=== PATIENT | male | born 1940 | race Caucasian/White ===

== ENCOUNTER 2020-04-29 07:51 | Inpatient (IN) | payer MEDICARE, BC ==
[~2020-04-29] VITALS: Ht 175.3 cm; Wt 83.3 kg
[2020-04-29] MEDS ORDERED: nitroGLYCERIN 0.4mg SUBLingual tab SL PRN ×2 (08:05→08:20)
[2020-04-29] MEDS ORDERED: nitroGLYCERIN 0.4mg SUBLingual tab SL ONE (08:07)
--- NOTE | 2020-04-29 08:19 | NUR ---
denies chest pain at this time.
[2020-04-29 08:31] LABS: BASOPHILS # (AUTO) 0.1 X10'3 (0-0.2); BASOPHILS % (AUTO) 0.8 % (0-1); EOSINOPHILS # (AUTO) 0.5 X10'3 (0-0.9); EOSINOPHILS % (AUTO) 6.7 % (0-6); HEMATOCRIT 43.2 % (42.0-52.0); HEMOGLOBIN 14.6 g/dl (14.0-17.9); LYMPHOCYTES # (AUTO) 1.7 X10'3 (1.1-4.8); LYMPHOCYTES % (AUTO) 21.2 % (21-51); MEAN CORPUSCULAR HEMOGLOBIN 31.6 PG (27.0-31.0); MEAN CORPUSCULAR HGB CONC 33.8 g/dL (33.0-36.5); MEAN CORPUSCULAR VOLUME 93.3 FL (78-98); MEAN PLATELET VOLUME 8.2 FL (7.4-10.4); MONOCYTES # (AUTO) 1.1 X10'3 (0-0.9); MONOCYTES % (AUTO) 14.5 % (2-12); NEUTROPHILS # (AUTO) 4.5 X10'3 (1.8-7.7); NEUTROPHILS % (AUTO) 56.8 % (42-75); PLATELET COUNT 188 X10'3 (140-440); RED BLOOD COUNT 4.63 X10'6 (4.70-6.10); WHITE BLOOD COUNT 7.8 X10'3 (4.5-11.0)
[2020-04-29 08:45] LABS: ALANINE AMINOTRANSFERASE 24 U/L (12-78); ALBUMIN 3.7 G/DL (3.4-5.0); ALKALINE PHOSPHATASE 69 IU/L (46-116); ANION GAP 8 (8-16); ASPARTATE AMINO TRANSFERASE 26 U/L (10-37); BILIRUBIN,TOTAL 0.5 MG/DL (0.1-1.0); BLOOD UREA NITROGEN 21 MG/DL (7-18); BUN/CREATININE RATIO 15.7 (5.4-32.0); CALCIUM 9.1 MG/DL (8.5-10.1); CHLORIDE 104 MMOL/L (99-107); CREATININE 1.34 MG/DL (0.60-1.10); GLUCOSE 132 MG/DL (70-104); POTASSIUM 4.3 MMOL/L (3.5-5.1); SODIUM 136 MMOL/L (135-145); TOTAL CARBON DIOXIDE 24.3 MMOL/L (24-32); TOTAL PROTEIN 7.5 G/DL (6.4-8.2); eGFR 51 ML/MIN
[2020-04-29] MEDS ORDERED: aspirin 81mg tab.chew PO ONE (09:50)
[2020-04-29] MEDS ORDERED: LISI-600 PO (09:50)
[2020-04-29] MEDS ORDERED: heparin 10,000 units/1 ML INJ IV ONE ×2 (09:50→10:00)
[2020-04-29] MEDS ORDERED: magnesium hydroxide 30ml (MOM) UD suspension PO PRN (10:05)
[2020-04-29] MEDS ORDERED: morphine 2 MG/ML inj. syringe IV PRN ×2 (10:05)
[2020-04-29] MEDS ORDERED: acetaminophen 325mg tablet PO PRN (10:05)
[2020-04-29] MEDS ORDERED: ondansetron/PF 4mg/2ml inj IV PRN (10:05)
[2020-04-29] MEDS ORDERED: nitroGLYCERIN 1gm ointment UD TP ONE (10:05)
[2020-04-29] MEDS ORDERED: mag hydrox/Alum hydrox/simeth 30ml oral suspension PO PRN (10:05)
[2020-04-29] MEDS: heparin 25,000 UNIT/250ml bag 250 ML IV SCH ×2 (10:06→17:32)
[2020-04-29] MEDS: normal saline 1000ml 1,000 ML IV SCH ×3 (10:16→21:45)
[2020-04-29] MEDS ORDERED: METO25TA6 PO (10:20)
--- NOTE | 2020-04-29 12:29 | NUR ---
PT DENIES ANY CHEST PAIN, VS UPDATED AND PT PROVIDED WITH A URINAL
--- NOTE | 2020-04-29 13:22 | NUR ---
Spoke to Helen/elroyRN unable to take report since in covid room.Will attempt again in 10 minutes.ED CN aware.
--- NOTE | 2020-04-29 13:38 | NUR ---
Received report from STANISLAV Ibanez from ED. Awaiting patient's arrival to room 3012B.
[2020-04-29 13:47] VITALS: BP 187/74
--- NOTE | 2020-04-29 13:47 | NUR ---
Patient brought up by anel from ED. Patient ambulated from [facility] to bed and on heparin gtt running at 10. Patient vital signs are 95% on room air, temp 98.2, HR 68, BP 187/74, RR 16, and pain 1/10 which is a dull ache in over his sternal chest. Bed locked and lowered, call light in reach, nonskid socks on and in no acute distress. Will continue to monitor.
[2020-04-29 15:00] VITALS: BP 180/100
--- NOTE | 2020-04-29 16:03 | NUR ---
Paged Dr. Estevez regarding critical troponin of 0.66 PAGER ID: [phone] MESSAGE: [phone]. Luis Eduardo Dickson. Critical results of troponin of 0.66. Thank you. Marti COLORADO x [phone]
[2020-04-29] MEDS ORDERED: pneumococcal 23-VAL P-sac vacc 25 mcg/0.5ml vial IMVAC ONE (16:15)
[2020-04-29] MEDS: heparin 10,000 units/1 ML INJ IV PRN (17:31)
[2020-04-29 19:00] VITALS: BP 180/82
--- NOTE | 2020-04-29 20:00 | NUR ---
Page sent to Dr. Garcia regarding critically elevated 12 hour troponin of 0.76 which is elevated from 0.66. Patient is awaiting cardiac consult. MD aware of value and stated to continue to monitor
[2020-04-29] MEDS: metoprolol tartrate 25mg tablet PO SCH (20:23)
[2020-04-29 23:00] VITALS: BP 135/64
[2020-04-30] MEDS: heparin 25,000 UNIT/250ml bag 250 ML IV SCH ×4 (01:41→23:52)
[2020-04-30 01:44] VITALS: BP 148/78
[2020-04-30 06:00] VITALS: BP 153/83
--- NOTE | 2020-04-30 06:16 | NUR ---
Problems reprioritized. Patient report given, questions answered & plan of care reviewed with Sindy COLORADO.
--- NOTE | 2020-04-30 06:51 | NUR ---
Patient in room PCU 3012. I have received report from Elise COLORADO and had the opportunity to ask questions and assume patient care.
[2020-04-30] MEDS ORDERED: atorvastatin 20mg tablet PO SCH (08:00)
[2020-04-30 08:17] LABS: BASOPHILS # (AUTO) 0.1 X10'3 (0-0.2); EOSINOPHILS # (AUTO) 0.6 X10'3 (0-0.9); EOSINOPHILS % (AUTO) 8.1 % (0-6); LYMPHOCYTES # (AUTO) 1.3 X10'3 (1.1-4.8); LYMPHOCYTES % (AUTO) 19.8 % (21-51); MEAN CORPUSCULAR HEMOGLOBIN 31.6 PG (27.0-31.0); MEAN CORPUSCULAR HGB CONC 34.1 g/dL (33.0-36.5); MEAN CORPUSCULAR VOLUME 92.7 FL (78-98); MEAN PLATELET VOLUME 8.5 FL (7.4-10.4); MONOCYTES # (AUTO) 0.9 X10'3 (0-0.9); MONOCYTES % (AUTO) 12.7 % (2-12); NEUTROPHILS % (AUTO) 58.4 % (42-75); PLATELET COUNT 176 X10'3 (140-440); RED BLOOD COUNT 4.42 X10'6 (4.70-6.10); RED CELL DISTRIBUTION WIDTH 14.1 % (11.5-14.5); WHITE BLOOD COUNT 6.8 X10'3 (4.5-11.0)
[2020-04-30] MEDS: aspirin 81mg tablet.DR PO SCH (08:17)
[2020-04-30] MEDS: metoprolol tartrate 25mg tablet PO SCH ×2 (08:18→20:11)
[2020-04-30] MEDS: lisinopril 20mg tablet PO SCH (08:21)
[2020-04-30 08:25] LABS: ALBUMIN 3.2 G/DL (3.4-5.0); ANION GAP 8 (8-16); BLOOD UREA NITROGEN 15 MG/DL (7-18); BUN/CREATININE RATIO 13.4 (5.4-32.0); CALCIUM 8.3 MG/DL (8.5-10.1); CHLORIDE 105 MMOL/L (99-107); CREATININE 1.12 MG/DL (0.60-1.10); GLUCOSE 101 MG/DL (70-104); POTASSIUM 4.5 MMOL/L (3.5-5.1); SODIUM 137 MMOL/L (135-145); TOTAL CARBON DIOXIDE 24.3 MMOL/L (24-32); eGFR 63 ML/MIN
[2020-04-30] MEDS ORDERED: regadenoson 0.4mg/5ml syringe IV ONE (09:45)
[2020-04-30] MEDS ORDERED: nitroGLYCERIN 0.4mg SUBLingual tab SL PRN (09:45)
[2020-04-30] MEDS ORDERED: metoprolol tartrate 1mg/ml inj IV PRN (09:45)
[2020-04-30] MEDS ORDERED: aminophylline 250mg/10ml inj. IV PRN (09:45)
[2020-04-30] MEDS ORDERED: pneumococcal 23-VAL P-sac vacc 25 mcg/0.5ml vial IMVAC ONE (10:00)
[2020-04-30 11:00] VITALS: BP 160/82
--- NOTE | 2020-04-30 11:15 | NUR ---
CAROLE eaglepaged dr moreno regarding pt elevated troponin, was in the laboratory scientist at the time and could not take page/call. Dr moreno called back and verbalized "hold" stress test for now, will consult with patient.
[2020-04-30] MEDS ORDERED: acetylcysteine 200 MG/ml 4ml vial PO ONE (11:50)
[2020-04-30] MEDS ORDERED: LIDOcaine/PRILOcaine 5gm cream TP ONE (12:05)
[2020-04-30] MEDS ORDERED: nitroGLYCERIN-Tridil 50MG/D5W 250 ML IV ONE (14:43)
[2020-04-30] MEDS ORDERED: midazolam 2 mg/2 ml injection ONE (14:43)
[2020-04-30] MEDS ORDERED: fentaNYL/PF 50MCG/1 ML 2ML syringe ONE (14:43)
[2020-04-30] MEDS ORDERED: verapamil 2.5 mg/ml inj IV ONE (14:43)
[2020-04-30] MEDS ORDERED: iohexol 350MG/ML 100ml bottle IV ONE (14:44)
[2020-04-30] MEDS ORDERED: iohexol 350 MG/ML 50ML vial IV ONE ×2 (14:44→15:59)
[2020-04-30] MEDS ORDERED: LIDOcaine 1% (10mg/ml)w/preservative injection 20ml MDV ONE (14:44)
[2020-04-30] MEDS ORDERED: heparin 1,000unit/ml 10ml vial 10 ML ONE (14:44)
[2020-04-30] MEDS: normal saline 1000ml 1,000 ML IV SCH (16:03)
[2020-04-30 16:53] VITALS: BP 162/81
[2020-04-30] MEDS ORDERED: normal saline 1000ml 1,000 ML IV ONE (17:10)
[2020-04-30 18:00] VITALS: BP 139/82
[2020-04-30] MEDS ORDERED: hydrALAZINE 20mg/ml inj. IV PRN (18:05)
--- NOTE | 2020-04-30 18:53 | NUR ---
Patient in room PCU 3012. I have received report from Sindy COLORADO and had the opportunity to ask questions and assume patient care.
--- NOTE | 2020-04-30 18:56 | NUR ---
Radial Access is without hematoma.
[2020-04-30] MEDS ORDERED: LIDOCAINE 5% OINTMENT 35GM TP SCH (20:00)
[2020-04-30] MEDS: acetylcysteine 200 MG/ml 4ml vial PO SCH (20:14)
--- NOTE | 2020-04-30 21:18 | NUR ---
Patient in room PCU 3012. I have received report from Nurys COLORADO and had the opportunity to ask questions and assume patient care.
[2020-04-30 22:00] VITALS: BP 130/64
[2020-04-30] MEDS: atorvastatin 20mg tablet PO SCH (22:27)
[2020-05-01 02:00] VITALS: BP 150/70
[2020-05-01 05:37] LABS: ALBUMIN 3.1 G/DL (3.4-5.0); ANION GAP 8 (8-16); BASOPHILS # (AUTO) 0.1 X10'3 (0-0.2); BLOOD UREA NITROGEN 12 MG/DL (7-18); CALCIUM 8.1 MG/DL (8.5-10.1); CHLORIDE 104 MMOL/L (99-107); EOSINOPHILS # (AUTO) 0.5 X10'3 (0-0.9); EOSINOPHILS % (AUTO) 7.2 % (0-6); GLUCOSE 101 MG/DL (70-104); HEMATOCRIT 40.8 % (42.0-52.0); HEMOGLOBIN 13.8 g/dl (14.0-17.9); LYMPHOCYTES # (AUTO) 1.3 X10'3 (1.1-4.8); LYMPHOCYTES % (AUTO) 18.4 % (21-51); MEAN CORPUSCULAR HEMOGLOBIN 31.3 PG (27.0-31.0); MEAN CORPUSCULAR HGB CONC 33.9 g/dL (33.0-36.5); MEAN CORPUSCULAR VOLUME 92.3 FL (78-98); MEAN PLATELET VOLUME 8.4 FL (7.4-10.4); MONOCYTES % (AUTO) 13.7 % (2-12); NEUTROPHILS # (AUTO) 4.2 X10'3 (1.8-7.7); NEUTROPHILS % (AUTO) 59.7 % (42-75); PLATELET COUNT 168 X10'3 (140-440); POTASSIUM 4.2 MMOL/L (3.5-5.1); RED BLOOD COUNT 4.43 X10'6 (4.70-6.10); RED CELL DISTRIBUTION WIDTH 14.2 % (11.5-14.5); SODIUM 136 MMOL/L (135-145); TOTAL CARBON DIOXIDE 24.1 MMOL/L (24-32); eGFR 72 ML/MIN
[2020-05-01 06:00] VITALS: BP 165/78
[2020-05-01] MEDS: heparin 10,000 units/1 ML INJ IV PRN (07:09)
[2020-05-01] MEDS: heparin 25,000 UNIT/250ml bag 250 ML IV SCH ×3 (07:12→21:32)
--- NOTE | 2020-05-01 07:23 | NUR ---
Problems reprioritized. Patient report given, questions answered & plan of care reviewed with Sindy COLORADO.
--- NOTE | 2020-05-01 08:37 | NUR ---
PATIENTS KEYS WERE PICKED UP BY FRIEND IN THE LOBBY TO FEED PATIENTS CAT AT HIS HOME.
[2020-05-01] MEDS: aspirin 81mg tablet.DR PO SCH (08:54)
[2020-05-01] MEDS: lisinopril 20mg tablet PO SCH (08:54)
[2020-05-01] MEDS: metoprolol tartrate 25mg tablet PO SCH ×2 (08:54→20:13)
[2020-05-01] MEDS: acetylcysteine 200 MG/ml 4ml vial PO SCH ×2 (08:56→20:14)
[2020-05-01 09:05] LABS: CHOLESTEROL 168 MG/DL (0-200); HDL CHOLESTEROL 42 MG/DL (35-60); LDL CHOLESTEROL 112 MG/DL (50-100); TRIGLYCERIDES 145 MG/DL (20-135)
[2020-05-01 11:00] VITALS: BP 143/75
[2020-05-01 15:00] VITALS: BP 153/92
[2020-05-01] MEDS: normal saline 1000ml 1,000 ML IV SCH ×2 (17:05→17:06)
[2020-05-01 18:00] VITALS: BP 122/70
--- NOTE | 2020-05-01 18:28 | NUR ---
Patient in room PCU 3012. I have received report from Sindy COLORADO and had the opportunity to ask questions and assume patient care.
--- NOTE | 2020-05-01 18:31 | NUR ---
Problems reprioritized. Patient report given, questions answered & plan of care reviewed with Dasha COLORADO.
[2020-05-01] MEDS: atorvastatin 20mg tablet PO SCH (20:12)
--- NOTE | 2020-05-01 21:32 | NUR ---
Patient heparin drip was running at 1100 units when i arrived on shift @ 1800. Replaced bag and rate had not been adjusted in IV spread. Did not change rate from what was set and current setting was the rate I received in shift report.
[2020-05-01 22:00] VITALS: BP 140/62
[2020-05-02 02:00] VITALS: BP 123/69
[2020-05-02 02:42] LABS: ANION GAP 7 (8-16); BASOPHILS # (AUTO) 0.1 X10'3 (0-0.2); BASOPHILS % (AUTO) 1.1 % (0-1); BLOOD UREA NITROGEN 15 MG/DL (7-18); BUN/CREATININE RATIO 12.9 (5.4-32.0); CALCIUM 8.5 MG/DL (8.5-10.1); CHLORIDE 104 MMOL/L (99-107); CREATININE 1.16 MG/DL (0.60-1.10); EOSINOPHILS # (AUTO) 0.5 X10'3 (0-0.9); EOSINOPHILS % (AUTO) 6.8 % (0-6); GLUCOSE 113 MG/DL (70-104); HEMATOCRIT 40.4 % (42.0-52.0); HEMOGLOBIN 13.6 g/dl (14.0-17.9); LYMPHOCYTES # (AUTO) 1.6 X10'3 (1.1-4.8); LYMPHOCYTES % (AUTO) 20.6 % (21-51); MEAN CORPUSCULAR HEMOGLOBIN 31.3 PG (27.0-31.0); MEAN CORPUSCULAR HGB CONC 33.7 g/dL (33.0-36.5); MEAN CORPUSCULAR VOLUME 92.9 FL (78-98); MEAN PLATELET VOLUME 8.3 FL (7.4-10.4); MONOCYTES % (AUTO) 13.5 % (2-12); NEUTROPHILS # (AUTO) 4.4 X10'3 (1.8-7.7); PLATELET COUNT 169 X10'3 (140-440); POTASSIUM 4.3 MMOL/L (3.5-5.1); RED BLOOD COUNT 4.35 X10'6 (4.70-6.10); RED CELL DISTRIBUTION WIDTH 13.9 % (11.5-14.5); SODIUM 136 MMOL/L (135-145); TOTAL CARBON DIOXIDE 25.2 MMOL/L (24-32); WHITE BLOOD COUNT 7.6 X10'3 (4.5-11.0); eGFR 61 ML/MIN
[2020-05-02 06:00] VITALS: BP 129/77
--- NOTE | 2020-05-02 06:10 | NUR ---
Problems reprioritized. Patient report given, questions answered & plan of care reviewed with Joan COLORADO.
--- NOTE | 2020-05-02 06:13 | NUR ---
Patient in room PCU 3012. I have received report from Dasha COLORADO and had the opportunity to ask questions and assume patient care.
[2020-05-02] MEDS: aspirin 81mg tablet.DR PO SCH (07:38)
[2020-05-02] MEDS: lisinopril 20mg tablet PO SCH (07:38)
[2020-05-02] MEDS: metoprolol tartrate 25mg tablet PO SCH ×2 (07:39→20:18)
[2020-05-02] MEDS: acetylcysteine 200 MG/ml 4ml vial PO SCH ×2 (07:39→20:15)
[2020-05-02 11:00] VITALS: BP 158/71
--- NOTE | 2020-05-02 12:00 | NUR ---
Sent a page to Dr Kumar re the patients plan of care. PAGER ID: [phone] MESSAGE: oJan COLORADO [phone] [id number] D [place], JOCE patient would like to go with stents instead of CABG, patient would like to talk to Dr Mcbride, thanks!
--- NOTE | 2020-05-02 12:54 | NUR ---
Spoke with Dr Claros in person re this patients plan of care, let the MD know that the patient wants to proceed with heart stents and not a CABG, let Dr Claros know that I sent a page to Dr Kumar about this and that the patient wants to talk to Dr Mcbride. Will continue to monitor closely.
--- NOTE | 2020-05-02 13:29 | NUR ---
Dr Kumar at bedside assessing patient, states she will reach out to Dr Mcbride for a consult, will continue to monitor the patient closely.
[2020-05-02 15:00] VITALS: BP 125/52
--- NOTE | 2020-05-02 17:36 | NUR ---
Had a conversation with the patient in regards to what is happening with his plan of care. Explained that Dr Kumar had reached out to Dr Mcbride for a consult and that he would come see the patient either later tonight or tomorrow. Patient stated, "I feel like I am being ignored by Dr Mcbride, I'm really angry". He stated "If I don't see a doctor by noon tomorrow then I am walking myself out of this hospital, I don't care what anyone says". I educated the patient on how if he leaves A with the blockages in his heart then he would be at a high risk for . Patient stated "I think the nursing care has been wonderful, but I feel like I am being jerked around by the doctors". Will continue to monitor the patient closely.
[2020-05-02 18:00] VITALS: BP 165/73
--- NOTE | 2020-05-02 18:19 | NUR ---
Problems reprioritized. Patient report given, questions answered & plan of care reviewed with Dasha COLORADO.
--- NOTE | 2020-05-02 19:10 | NUR ---
Patient in room PCU 3012. I have received report from Joan COLORADO and had the opportunity to ask questions and assume patient care.
[2020-05-02] MEDS: atorvastatin 20mg tablet PO SCH (20:15)
[2020-05-02 22:00] VITALS: BP 135/67
[2020-05-02] MEDS: heparin 25,000 UNIT/250ml bag 250 ML IV SCH (22:40)
[2020-05-03 02:00] VITALS: BP 133/66
[2020-05-03 03:49] LABS: ALBUMIN 3.1 G/DL (3.4-5.0); ANION GAP 8 (8-16); BASOPHILS # (AUTO) 0.1 X10'3 (0-0.2); BASOPHILS % (AUTO) 1.2 % (0-1); BLOOD UREA NITROGEN 17 MG/DL (7-18); CALCIUM 8.4 MG/DL (8.5-10.1); CHLORIDE 104 MMOL/L (99-107); CREATININE 1.31 MG/DL (0.60-1.10); EOSINOPHILS # (AUTO) 0.5 X10'3 (0-0.9); EOSINOPHILS % (AUTO) 7.6 % (0-6); GLUCOSE 115 MG/DL (70-104); HEMOGLOBIN 13.6 g/dl (14.0-17.9); LYMPHOCYTES # (AUTO) 1.6 X10'3 (1.1-4.8); LYMPHOCYTES % (AUTO) 22.7 % (21-51); MEAN CORPUSCULAR HEMOGLOBIN 31.5 PG (27.0-31.0); MEAN CORPUSCULAR HGB CONC 34.1 g/dL (33.0-36.5); MEAN CORPUSCULAR VOLUME 92.3 FL (78-98); MEAN PLATELET VOLUME 8.4 FL (7.4-10.4); MONOCYTES % (AUTO) 13.9 % (2-12); NEUTROPHILS # (AUTO) 3.9 X10'3 (1.8-7.7); NEUTROPHILS % (AUTO) 54.6 % (42-75); PLATELET COUNT 164 X10'3 (140-440); POTASSIUM 4.5 MMOL/L (3.5-5.1); RED BLOOD COUNT 4.33 X10'6 (4.70-6.10); SODIUM 136 MMOL/L (135-145); TOTAL CARBON DIOXIDE 23.9 MMOL/L (24-32); WHITE BLOOD COUNT 7.1 X10'3 (4.5-11.0); eGFR 53 ML/MIN
[2020-05-03 06:00] VITALS: BP 129/73
--- NOTE | 2020-05-03 06:00 | NUR ---
Problems reprioritized. Patient report given, questions answered & plan of care reviewed with Joan COLORADO.
--- NOTE | 2020-05-03 06:19 | NUR ---
Patient in room PCU 3012. I have received report from Dasha COLORADO and had the opportunity to ask questions and assume patient care.
[2020-05-03] MEDS: metoprolol tartrate 25mg tablet PO SCH (07:25)
[2020-05-03] MEDS: lisinopril 20mg tablet PO SCH (07:26)
[2020-05-03] MEDS: aspirin 81mg tablet.DR PO SCH (07:26)
[2020-05-03] MEDS: acetylcysteine 200 MG/ml 4ml vial PO SCH (07:26)
[2020-05-03 07:59] LABS: HEMOGLOBIN A1C 5.8 % (4.5-6.2)
--- NOTE | 2020-05-03 10:32 | NUR ---
Pt presented with c/o CP, admit with NSTEMI. Pt currently on a heart healthy diet documented with 75-100% PO intake meeting nutrient needs. LBM 05/02 following receiving PRN bowel care, previously without a BM since 04/29. No edema or wounds. No nutrition diagnosis at this time. Will continue to follow. Recommendations: 1) Continue heart healthy diet 2) Bowel care PRN 3) Scaled weights per rx Addendum: 05/03/20 at [address] Amended: Links added.
[2020-05-03 11:00] VITALS: BP 163/72
--- NOTE | 2020-05-03 11:19 | NUR ---
Spoke with Dr Tan via telephone, Dr Tan wants all the pre op tests ordered on this patient to be done before discharged, also received orders to turn off the heparin gtt and walk the patient around to see if his chest pain return, wants patient to recieve COVID-19 testing as well, will continue to monitor closely
[2020-05-03] MEDS ORDERED: NITR0.4T51 SL (11:20)
[2020-05-03] MEDS ORDERED: ATOR20TA66 PO (11:20)
--- NOTE | 2020-05-03 11:38 | NUR ---
Walked patient around the unit with no assistive devices. Heparin gtt off, walked 500 feet, no chest pain, will continue to monitor closely.
[2020-05-03 13:00] LABS: ABG BASE EXCESS -0.7 mmol/L (-2.0-2.0); ABG HCO3 22.6 mmol/L (22.0-26.0); ABG OXYGEN SATURATION 96.5 % (94-97); ABG PCO2 (T) 33.4 mmHg (35.0-48.0); ABG PO2 (T) 88.5 mmHg (75.0-100.0); ALLEN'S TEST POSITIVE; FCOHb 0.1 % (0.0-3.9); FMetHb 0.2 % (0.0-1.5); FO2Hb 96.2 % (94-97); TOTAL HEMOGLOBIN 14.4 G/dl (14.0-18.0)
--- NOTE | 2020-05-03 14:29 | NUR ---
Stable for discharge per MD order, reviewed all discharge instructions with the patient and answered all questions, new prescriptions sent to [facility] pharmacy on [address], educated patient on how to take nitroglycerin and to call 911 if chest pain is sustained with nitroglycerin, emphasized the importance of f/u with Dr Tan early tomorrow morning to schedule OP CABG apt. Before discharge from hospital VL vascular/carotid study, covid testing and ABG/PFT testing completed, patient ambulated with RN chest pain free not on heparin, Tele monitor and PIV discontinued, all belongings collected and sent with the patient, left the unit at 1429 in wheelchair with RN to private vehicle.
[2020-05-04] MEDS ORDERED: NITR0.4T51 SL (11:06)
[2020-05-04] MEDS ORDERED: ATOR40TA71 PO (11:06)
--- NOTE | 2020-05-04 14:17 | NUR ---
Case Management DC follow up: DC 04/02/20, readmit 05/04/20 CP, possible CABG Dr Tan [id number]
== END 2020-05-03 14:30 | disposition home or self-care (01) | DRG 281 ==
LOC: ER 07:51 → ED HOLD 10:03 → EDBEDREQ 13:14 → PCU 3S 13:52
PROVIDERS: ADMIT Family Medicine; ATTEND Family Medicine
PROC: 4A023N7 Measurement of Cardiac Sampling and Pressure, Left Heart, Percutaneous Approach (ICD-10-PCS; principal; 2020-04-30)
PROC: B2111ZZ Fluoroscopy of Multiple Coronary Arteries using Low Osmolar Contrast (ICD-10-PCS; 2020-04-30)
PROC: B2151ZZ Fluoroscopy of Left Heart using Low Osmolar Contrast (ICD-10-PCS; 2020-04-30)
PROC: B31H1ZZ Fluoroscopy of Right Upper Extremity Arteries using Low Osmolar Contrast (ICD-10-PCS; 2020-04-30)
DX: I21.4 Non-ST elevation (NSTEMI) myocardial infarction (principal); N17.9 Acute kidney failure, unspecified; I48.92 Unspecified atrial flutter; I48.20 Chronic atrial fibrillation, unspecified; I25.110 Atherosclerotic heart disease of native coronary artery with unstable angina pectoris; E78.5 Hyperlipidemia, unspecified; F41.9 Anxiety disorder, unspecified; I10 Essential (primary) hypertension; M19.90 Unspecified osteoarthritis, unspecified site; Z20.828 Contact with and (suspected) exposure to other viral communicable diseases; Z87.442 Personal history of urinary calculi; Z87.891 Personal history of nicotine dependence; I25.2 Old myocardial infarction; Z95.1 Presence of aortocoronary bypass graft
CPT/HCPCS: 36415; 36600; 71045; 80048; 80053; 80061; 82803; 83036; 83880; 84484; 85018; 85025; 85730; 87081; 87635; 90732; 93005; 93306; 93458; 93880; 93970; 94010; 99152; 99153; 99285; A4620; A5120; C1769; C1894; G0378; J1644; J2001; J2250; J3010; J3490; J7030; Q9967

== ENCOUNTER 2020-05-04 06:23 | Inpatient (IN) | payer MEDICARE, BC ==
[~2020-05-04] VITALS: Ht 327.7 cm; Wt 86.3 kg
[~2020-05-04 06:23] MED LIST: ATOR20TA66 PO; LISI-600 PO; METO25TA6 PO; NITR0.4T51 SL
[2020-05-04] MEDS ORDERED: aspirin 81mg tab.chew PO ONE (06:25)
[2020-05-04] MEDS ORDERED: nitroGLYCERIN 0.4mg SUBLingual tab SL PRN ×2 (06:25→11:55)
--- NOTE | 2020-05-04 07:11 | NUR ---
PT STATES HIS PAIN WENT FROM 10/10 TO 2/10 AFTER RECEIVING NITRO SL.
[2020-05-04 07:18] LABS: BASOPHILS # (AUTO) 0.1 X10'3 (0-0.2); BASOPHILS % (AUTO) 1.1 % (0-1); EOSINOPHILS # (AUTO) 0.3 X10'3 (0-0.9); HEMATOCRIT 41.3 % (42.0-52.0); HEMOGLOBIN 14.1 g/dl (14.0-17.9); LYMPHOCYTES # (AUTO) 1.2 X10'3 (1.1-4.8); LYMPHOCYTES % (AUTO) 15.9 % (21-51); MEAN CORPUSCULAR HEMOGLOBIN 31.7 PG (27.0-31.0); MEAN CORPUSCULAR HGB CONC 34.2 g/dL (33.0-36.5); MEAN CORPUSCULAR VOLUME 92.6 FL (78-98); MEAN PLATELET VOLUME 8.3 FL (7.4-10.4); MONOCYTES # (AUTO) 1.1 X10'3 (0-0.9); MONOCYTES % (AUTO) 14.5 % (2-12); NEUTROPHILS % (AUTO) 64.5 % (42-75); PLATELET COUNT 182 X10'3 (140-440); RED BLOOD COUNT 4.46 X10'6 (4.70-6.10); RED CELL DISTRIBUTION WIDTH 14.3 % (11.5-14.5); WHITE BLOOD COUNT 7.7 X10'3 (4.5-11.0)
[2020-05-04 07:31] LABS: ALANINE AMINOTRANSFERASE 62 U/L (12-78); ALBUMIN 3.6 G/DL (3.4-5.0); ALKALINE PHOSPHATASE 70 IU/L (46-116); ANION GAP 9 (8-16); ASPARTATE AMINO TRANSFERASE 62 U/L (10-37); BILIRUBIN,TOTAL 0.7 MG/DL (0.1-1.0); BLOOD UREA NITROGEN 26 MG/DL (7-18); BUN/CREATININE RATIO 15.7 (5.4-32.0); CALCIUM 8.7 MG/DL (8.5-10.1); CHLORIDE 103 MMOL/L (99-107); CREATININE 1.66 MG/DL (0.60-1.10); GLUCOSE 123 MG/DL (70-104); POTASSIUM 4.4 MMOL/L (3.5-5.1); SODIUM 135 MMOL/L (135-145); TOTAL CARBON DIOXIDE 23.3 MMOL/L (24-32); TOTAL PROTEIN 7.3 G/DL (6.4-8.2); eGFR 40 ML/MIN
[2020-05-04 07:37] LABS: MAGNESIUM 2.1 MG/DL (1.5-2.4)
[2020-05-04] MEDS ORDERED: heparin 10,000 units/1 ML INJ IV ONE (07:45)
[2020-05-04] MEDS ORDERED: heparin 10,000 units/1 ML INJ IV PRN (07:45)
[2020-05-04] MEDS: heparin 25,000 UNIT/250ml bag 250 ML IV SCH (07:59)
[2020-05-04 08:00] LABS: PARTIAL THROMBOPLASTIN TIME 27 SECONDS (22-32)
[2020-05-04] MEDS ORDERED: MAGNESIUM SULFATE 4 MEQ/ML (5gm/10ml) injection ONE (08:00)
[2020-05-04] MEDS ORDERED: sodium bicarbonate (8.4%) 1 mEq/ml syringe ONE (08:00)
[2020-05-04] MEDS ORDERED: LIDOcaine 2% (20 mg/ml) 5ml cardiac syringe ONE (08:00)
[2020-05-04] MEDS ORDERED: aminocaproic acid 250 MG/1 ML inj. ONE (08:00)
[2020-05-04] MEDS ORDERED: potassium Cl 2 mEq/ml inj IV ONE (08:00)
[2020-05-04] MEDS ORDERED: methylPREDNISolone sod. succ. 500mg inj ONE (08:00)
[2020-05-04] MEDS ORDERED: calcium chloride 100 MG/1 ML inj IV ONE (08:00)
[2020-05-04] MEDS ORDERED: heparin 1,000 units/ml 10ml inj ONE (08:00)
[2020-05-04] MEDS ORDERED: phenylephrine 10mg/ml inj. ONE (08:00)
[2020-05-04] MEDS ORDERED: heparin 10,000 units/1 ML INJ ONE (08:00)
[2020-05-04] MEDS ORDERED: albumin (human) 25% 100 ML IV solution IV ONE (08:00)
--- NOTE | 2020-05-04 08:04 | NUR ---
SPOKE WITH DR. WASHBURN REGARDING PTT LABS PENDING, HE OK'D TO START HEPARIN DRIP AND BOLUS BEFORE PTT LAB RESULTS.
[2020-05-04] MEDS: normal saline 1000ml 1,000 ML IV SCH ×2 (08:18→18:18)
[2020-05-04] MEDS ORDERED: acetaminophen 325mg tablet PO PRN (08:20)
[2020-05-04] MEDS ORDERED: ondansetron/PF 4mg/2ml inj IV PRN (08:20)
[2020-05-04] MEDS ORDERED: morphine 2 MG/ML inj. syringe IV PRN (08:20)
[2020-05-04] MEDS ORDERED: magnesium hydroxide 30ml (MOM) UD suspension PO PRN (08:20)
[2020-05-04] MEDS ORDERED: mag hydrox/Alum hydrox/simeth 30ml oral suspension PO PRN (08:20)
[2020-05-04] MEDS ORDERED: ATOR40TA71 PO (11:06)
[2020-05-04] MEDS ORDERED: NITR0.4T51 SL (11:06)
--- NOTE | 2020-05-04 12:10 | NUR ---
Patient in room ED 14. I have received report from STANISLAV Nesbitt and had the opportunity to ask questions and assume patient care.
[2020-05-04 12:30] VITALS: BP 170/83
[2020-05-04] MEDS ORDERED: dextrose 50%-water 50ml dispensing syringe IV PRN (13:20)
[2020-05-04] MEDS ORDERED: potassium Cl 20mEq/100mL bag 100 ML IV PRN (13:20)
[2020-05-04] MEDS ORDERED: magnesium 4gm in 100ml NS 100 ML IV PRN (13:20)
[2020-05-04] MEDS ORDERED: insulin glargine (Lantus) pen - multi-dose SQ PRN (13:20)
[2020-05-04] MEDS ORDERED: MESSAGE TO NURSING PO ONE (13:20)
[2020-05-04] MEDS ORDERED: magnesium 2GM in 50ml NS 50 ML IV PRN (13:20)
[2020-05-04] MEDS ORDERED: ringers solution, lacted 1,000 ML IV ONE (14:08)
--- NOTE | 2020-05-04 14:19 | NUR ---
PAGER ID: [phone] MESSAGE: randa [phone]. pt. Luis Eduardo Dickson. JOCE pt. 6 hr trop came back at 2.65. CABG scheduled for tomorrow. [place] 1400
[2020-05-04 15:00] VITALS: BP 142/72
[2020-05-04 18:00] VITALS: BP 168/76
--- NOTE | 2020-05-04 18:38 | NUR ---
Problems reprioritized. Patient report given, questions answered & plan of care reviewed with STANISLAV Lema.
[2020-05-04] MEDS ORDERED: metoprolol tartrate 12.5mg (1/2 tablet) PO SCH (20:00)
[2020-05-04] MEDS: mupirocin 2% nasal ointment 1gm UD NS SCH (20:15)
[2020-05-04] MEDS: metoprolol tartrate 25mg tablet PO SCH (20:18)
[2020-05-04] MEDS ORDERED: atorvastatin 20mg tablet PO SCH (21:00)
[2020-05-04 22:00] VITALS: BP 124/65
[2020-05-05] VITALS (17 sets, daily range): BP systolic 78–140; BP diastolic 43–73
[2020-05-05] MEDS: normal saline 1000ml 1,000 ML IV SCH (04:18)
[2020-05-05 04:58] LABS: BASOPHILS # (AUTO) 0.1 X10'3 (0-0.2); EOSINOPHILS # (AUTO) 0.3 X10'3 (0-0.9); EOSINOPHILS % (AUTO) 5.2 % (0-6); HEMOGLOBIN 13.5 g/dl (14.0-17.9); LYMPHOCYTES # (AUTO) 1.2 X10'3 (1.1-4.8); LYMPHOCYTES % (AUTO) 19.1 % (21-51); MEAN CORPUSCULAR HEMOGLOBIN 31.3 PG (27.0-31.0); MEAN CORPUSCULAR HGB CONC 33.7 g/dL (33.0-36.5); MEAN CORPUSCULAR VOLUME 92.9 FL (78-98); MEAN PLATELET VOLUME 8.6 FL (7.4-10.4); MONOCYTES # (AUTO) 0.9 X10'3 (0-0.9); NEUTROPHILS # (AUTO) 3.9 X10'3 (1.8-7.7); NEUTROPHILS % (AUTO) 60.7 % (42-75); PLATELET COUNT 161 X10'3 (140-440); RED BLOOD COUNT 4.31 X10'6 (4.70-6.10); RED CELL DISTRIBUTION WIDTH 14.2 % (11.5-14.5); WHITE BLOOD COUNT 6.4 X10'3 (4.5-11.0)
[2020-05-05] MEDS ORDERED: MESSAGE TO NURSING PO ONE ×4 (05:00→10:00)
[2020-05-05] MEDS ORDERED: MALTODEXTRIN/FRUCTOSE 0.68 KCAL/ML LIQUID 296ML BOTTLE PO ONE (05:00)
[2020-05-05] MEDS ORDERED: ceFAZolin 1000mg inj ONE (05:10)
[2020-05-05 05:22] LABS: ALBUMIN 3.3 G/DL (3.4-5.0); ANION GAP 11 (8-16); BLOOD UREA NITROGEN 20 MG/DL (7-18); CALCIUM 8.3 MG/DL (8.5-10.1); CHLORIDE 105 MMOL/L (99-107); CREATININE 1.33 MG/DL (0.60-1.10); GLUCOSE 121 MG/DL (70-104); POTASSIUM 4.3 MMOL/L (3.5-5.1); SODIUM 136 MMOL/L (135-145); TOTAL CARBON DIOXIDE 20.3 MMOL/L (24-32); eGFR 52 ML/MIN
[2020-05-05] MEDS ORDERED: gabapentin 400mg capsule PO ONE (05:30)
[2020-05-05] MEDS ORDERED: ceFAZolin 2gm in dextrose, iso 50 ML IV ONE (05:30)
[2020-05-05] MEDS ORDERED: vancomycin/NS 1 GM ADD-VANTAGE 250 ML IV ONE (05:30)
[2020-05-05] MEDS ORDERED: Insulin Reg/NS 100units/100mL 100 ML IV SCH (05:30)
[2020-05-05] MEDS ORDERED: LORazepam 2 mg/ml vial IV ONE (06:00)
[2020-05-05] MEDS ORDERED: famotidine/PF 10 mg/ml inj IV ONE (06:00)
[2020-05-05] MEDS: metoprolol tartrate 25mg tablet PO SCH (06:16)
--- NOTE | 2020-05-05 06:28 | NUR ---
Patient in room PCU 3009. I have received report from Danielle COLORADO and had the opportunity to ask questions and assume patient care.
--- NOTE | 2020-05-05 06:30 | NUR ---
Problems reprioritized. Patient report given, questions answered & plan of care reviewed with STANISLAV Fontana.
[2020-05-05] MEDS: mupirocin 2% nasal ointment 1gm UD NS SCH ×3 (06:32→22:22)
--- NOTE | 2020-05-05 06:41 | NUR ---
Patient is picked up to OR w/ 2 staff genetic counselor with belongings, IV tower w/ meds, and chart, all needs met at this time, will continue to monitor.
[2020-05-05] MEDS ORDERED: SUFENTANIL CITRATE 50 MCG/ML 2ml ampule IV ONE (06:42)
[2020-05-05] MEDS ORDERED: MIDAZolam 1mg/ml 10ml vial ONE (06:42)
[2020-05-05] MEDS ORDERED: aminocaproic acid 250 MG/1 ML inj. ONE (06:44)
[2020-05-05] MEDS ORDERED: INSULIN R 100 UNIT in NS 100ML (1 UNIT/1 ML) BAG IV ONE (06:44)
[2020-05-05] MEDS ORDERED: isoflurane 100ml inhalation liquid IH ONE (06:44)
[2020-05-05] MEDS ORDERED: DOPamine/D5W 400mg/250ml bag IV ONE (06:44)
[2020-05-05] MEDS ORDERED: NORepinephrine 8 MG in NS 250 ML BAG (32 mcg/ml) IV ONE (06:44)
[2020-05-05] MEDS ORDERED: nitroGLYCERIN in D5W 50mg/250ml (Tridil) infusion IV ONE (06:44)
[2020-05-05] MEDS ORDERED: protamine sulf. 10mg/ml inj. IV ONE (06:44)
[2020-05-05 07:45] LABS: ABG BASE EXCESS -7.4 mmol/L (-2.0-2.0); ABG HCO3 18.1 mmol/L (22.0-26.0); ABG OXYGEN SATURATION 99.1 % (94-97); ABG PCO2 36.8 mmHg (35.0-48.0); ABG PO2 287.3 mmHg (75.0-100.0); CL (ABG) 106 mmol/L (98-110); FCOHb 0.2 % (0.0-3.9); FMetHb 0.3 % (0.0-1.5); FO2Hb 98.6 % (94-97); GLUCOSE (ABG) 135 mg/dl (70-140); IONIZED CA (ABG) 1.12 mmol/L (1.10-1.43); TOTAL HEMOGLOBIN 12.2 G/dl (14.0-18.0)
[2020-05-05] MEDS ORDERED: rocuronium 10mg/ml inj IV ONE ×5 (07:51→10:43)
[2020-05-05] MEDS ORDERED: heparin 10,000 units/1 ML INJ IR ONE (07:59)
[2020-05-05] MEDS: lisinopril 20mg tablet PO SCH (08:00)
[2020-05-05] MEDS ORDERED: papaverine 30 mg/ml 2ml inj. IA ONE (08:00)
[2020-05-05] MEDS ORDERED: aspirin 81mg tablet.DR PO SCH (08:00)
[2020-05-05 08:26] LABS: ABG BASE EXCESS -4.6 mmol/L (-2.0-2.0); ABG HCO3 19.8 mmol/L (22.0-26.0); ABG OXYGEN SATURATION 99.3 % (94-97); ABG PCO2 34.7 mmHg (35.0-48.0); ABG PO2 288.6 mmHg (75.0-100.0); CL (ABG) 106 mmol/L (98-110); FCOHb 0.2 % (0.0-3.9); FMetHb 0.2 % (0.0-1.5); FO2Hb 98.9 % (94-97); GLUCOSE (ABG) 107 mg/dl (70-140); K (ABG) 4.2 mmol/L (3.5-5.0)
[2020-05-05] MEDS ORDERED: fentaNYL/PF 50MCG/1 ML 2ML syringe IV PRN (08:50)
[2020-05-05] MEDS ORDERED: midazolam 2 mg/2 ml injection IV PRN (08:50)
[2020-05-05 08:56] LABS: ABG HCO3 28.3 mmol/L (22.0-26.0); ABG OXYGEN SATURATION 99.1 % (94-97); ABG PCO2 36.3 mmHg (35.0-48.0); ABG PO2 342.7 mmHg (75.0-100.0); CL (ABG) 102 mmol/L (98-110); FCOHb 0.3 % (0.0-3.9); FMetHb 0.3 % (0.0-1.5); FO2Hb 98.5 % (94-97); GLUCOSE (ABG) 102 mg/dl (70-140); IONIZED CA (ABG) 0.96 mmol/L (1.10-1.43); K (ABG) 5.2 mmol/L (3.5-5.0); TOTAL HEMOGLOBIN 8.7 G/dl (14.0-18.0)
[2020-05-05 09:26] LABS: ABG BASE EXCESS VENOUS 1.9 mmol/L; ABG PCO2 VENOUS 38.4 mmHg; ABG PO2 VENOUS 48.3 mmHg; CL (ABG) 103 mmol/L (98-110); FCOHb VENOUS 0.3 %; FMetHb VENOUS 0.6 %; FO2Hb VENOUS 85.1 %; GLUCOSE (ABG) 104 mg/dl (70-140); IONIZED CA (ABG) 0.99 mmol/L (1.10-1.43); K (ABG) 5.2 mmol/L (3.5-5.0)
[2020-05-05 09:50] LABS: ABG BASE EXCESS 3.7 mmol/L (-2.0-2.0); ABG HCO3 27.3 mmol/L (22.0-26.0); ABG PCO2 36.8 mmHg (35.0-48.0); ABG PO2 273.4 mmHg (75.0-100.0); CL (ABG) 102 mmol/L (98-110); FCOHb 0.3 % (0.0-3.9); FMetHb 0.7 % (0.0-1.5); GLUCOSE (ABG) 112 mg/dl (70-140); IONIZED CA (ABG) 1.43 mmol/L (1.10-1.43); K (ABG) 5.1 mmol/L (3.5-5.0); TOTAL HEMOGLOBIN 7.8 G/dl (14.0-18.0)
[2020-05-05 10:11] LABS: ABG BASE EXCESS 4.3 mmol/L (-2.0-2.0); ABG HCO3 28.2 mmol/L (22.0-26.0); ABG OXYGEN SATURATION 91.3 % (94-97); ABG PCO2 39.3 mmHg (35.0-48.0); ABG PO2 56.5 mmHg (75.0-100.0); CL (ABG) 103 mmol/L (98-110); FCOHb 0.4 % (0.0-3.9); FMetHb 0.5 % (0.0-1.5); FO2Hb 90.5 % (94-97); GLUCOSE (ABG) 134 mg/dl (70-140); IONIZED CA (ABG) 1.15 mmol/L (1.10-1.43); K (ABG) 4.9 mmol/L (3.5-5.0); TOTAL HEMOGLOBIN 8.5 G/dl (14.0-18.0)
[2020-05-05 10:20] LABS: ABG PCO2 VENOUS 46.6 mmHg; ABG PO2 VENOUS 36.1 mmHg; CL (ABG) 103 mmol/L (98-110); FCOHb VENOUS 0.5 %; FHHb VENOUS 25.9 %; FMetHb VENOUS 0.5 %; FO2Hb VENOUS 73.1 %; GLUCOSE (ABG) 139 mg/dl (70-140); IONIZED CA (ABG) 1.15 mmol/L (1.10-1.43); K (ABG) 4.9 mmol/L (3.5-5.0)
[2020-05-05 10:40] LABS: ABG BASE EXCESS 0.3 mmol/L (-2.0-2.0); ABG HCO3 24.1 mmol/L (22.0-26.0); ABG OXYGEN SATURATION 97.9 % (94-97); ABG PO2 115.6 mmHg (75.0-100.0); CL (ABG) 104 mmol/L (98-110); FCOHb 0.1 % (0.0-3.9); FMetHb 0.3 % (0.0-1.5); FO2Hb 97.5 % (94-97); GLUCOSE (ABG) 127 mg/dl (70-140); IONIZED CA (ABG) 1.15 mmol/L (1.10-1.43); K (ABG) 4.6 mmol/L (3.5-5.0); TOTAL HEMOGLOBIN 8.9 G/dl (14.0-18.0)
[2020-05-05] MEDS ORDERED: propofol inj 20 ML IV ONE (10:42)
[2020-05-05] MEDS ORDERED: sodium bicarbonate (8.4%) inj. 1 MEQ/ML ML ONE (10:42)
[2020-05-05] MEDS ORDERED: dexamethasone sod phosphate 4mg/ml inj. ONE (10:43)
[2020-05-05] MEDS ORDERED: 0.9 % SODIUM CHLORIDE 10 ML VIAL ONE (10:43)
[2020-05-05] MEDS ORDERED: ondansetron/PF 4mg/2ml inj ONE (10:43)
[2020-05-05] MEDS ORDERED: phenylephrine 10mg/ml inj. ONE (10:43)
[2020-05-05] MEDS ORDERED: LIDOcaine 2% (20mg/ml) 5ml vial ONE (10:43)
[2020-05-05] MEDS ORDERED: DOPamine 400mg/D5W 250ml 250 ML IV PRN (10:55)
[2020-05-05] MEDS ORDERED: potassium Cl 20mEq/100mL bag 100 ML IV PRN (10:55)
[2020-05-05] MEDS ORDERED: insulin glargine (Lantus) pen - multi-dose SQ PRN (10:55)
[2020-05-05] MEDS ORDERED: dextrose 50%-water 50ml dispensing syringe IV PRN (10:55)
[2020-05-05] MEDS ORDERED: mineral oil 133ml enema RC PRN (10:55)
[2020-05-05] MEDS ORDERED: magnesium citrate 296ml oral solution PO PRN (10:55)
[2020-05-05] MEDS ORDERED: acetaminophen 325mg tablet PO PRN ×2 (10:55)
[2020-05-05] MEDS ORDERED: pantoprazole 40 MG vial IV ONE (10:55)
[2020-05-05] MEDS ORDERED: sodium phosphate inj. 15 MMOL in dextrose 5%-water 250 ML IV PRN (10:55)
[2020-05-05] MEDS ORDERED: Neutra Phos packet PO PRN (10:55)
[2020-05-05] MEDS ORDERED: nitroGLYCERIN-Tridil 50MG/D5W 250 ML IV PRN (10:55)
[2020-05-05] MEDS ORDERED: ondansetron/PF 4mg/2ml inj IV PRN (10:55)
[2020-05-05] MEDS ORDERED: morphine 4 MG/ML inj SYRINge IV PRN ×2 (10:55)
[2020-05-05] MEDS ORDERED: normal saline 250ml IV soln 250 ML IV PRN (10:55)
[2020-05-05] MEDS ORDERED: metoclopramide 5 mg/ml inj IV PRN (10:55)
[2020-05-05] MEDS ORDERED: niCARDipine-NS 40mg/200ml IVPB 200 ML IV PRN (10:55)
[2020-05-05] MEDS ORDERED: bisacodyl 10mg suppository rectal RC PRN (10:55)
[2020-05-05] MEDS ORDERED: magnesium 4gm in 100ml NS 100 ML IV PRN (10:55)
[2020-05-05] MEDS ORDERED: sodium phosphate inj. 30 MMOL in dextrose 5%-water 250 ML IV PRN (10:55)
[2020-05-05] MEDS ORDERED: magnesium hydroxide 30ml (MOM) UD suspension PO PRN (10:55)
[2020-05-05] MEDS ORDERED: potassium Cl 20 mEq SR tablet PO PRN (10:55)
[2020-05-05 11:16] LABS: ACTIVATED CLOTTING TIME 132 SEC (101-148)
[2020-05-05] MEDS: Insulin Reg/NS 100units/100mL 100 ML IV SCH (11:30)
[2020-05-05 11:37] LABS: BASOPHILS % (AUTO) 0.3 % (0-1); EOSINOPHILS # (AUTO) 0.2 X10'3 (0-0.9); EOSINOPHILS % (AUTO) 1.5 % (0-6); HEMATOCRIT 30.1 % (42.0-52.0); HEMOGLOBIN 10.2 g/dl (14.0-17.9); LYMPHOCYTES # (AUTO) 1.2 X10'3 (1.1-4.8); LYMPHOCYTES % (AUTO) 8.3 % (21-51); MEAN CORPUSCULAR HEMOGLOBIN 31.5 PG (27.0-31.0); MEAN CORPUSCULAR HGB CONC 33.8 g/dL (33.0-36.5); MEAN CORPUSCULAR VOLUME 93.1 FL (78-98); MEAN PLATELET VOLUME 8.5 FL (7.4-10.4); MONOCYTES # (AUTO) 1.4 X10'3 (0-0.9); NEUTROPHILS # (AUTO) 11.5 X10'3 (1.8-7.7); NEUTROPHILS % (AUTO) 79.9 % (42-75); PLATELET COUNT 126 X10'3 (140-440); RED BLOOD COUNT 3.24 X10'6 (4.70-6.10); RED CELL DISTRIBUTION WIDTH 14.3 % (11.5-14.5); WHITE BLOOD COUNT 14.4 X10'3 (4.5-11.0)
[2020-05-05 11:41] LABS: ABG HCO3 24.1 mmol/L (22.0-26.0); ABG OXYGEN SATURATION 98.5 % (94-97); ABG PCO2 (T) 37.2 mmHg (35.0-48.0); ABG PO2 (T) 172.8 mmHg (75.0-100.0); FCOHb 0.2 % (0.0-3.9); FLOW 35 L/min; FMetHb 0.2 % (0.0-1.5); FO2Hb 98.1 % (94-97); PEEP 5 cm H2O; RESPIRATORY RATE 12 b/min; TOTAL HEMOGLOBIN 10.9 G/dl (14.0-18.0)
[2020-05-05 11:51] LABS: PARTIAL THROMBOPLASTIN TIME 28 SECONDS (22-32)
[2020-05-05 12:02] LABS: ALBUMIN 3.1 G/DL (3.4-5.0); ANION GAP 7 (8-16); BLOOD UREA NITROGEN 17 MG/DL (7-18); BUN/CREATININE RATIO 13.6 (5.4-32.0); CALCIUM 8.1 MG/DL (8.5-10.1); CHLORIDE 107 MMOL/L (99-107); CREATININE 1.25 MG/DL (0.60-1.10); GLUCOSE 152 MG/DL (70-104); MAGNESIUM 3.6 MG/DL (1.5-2.4); POTASSIUM 4.7 MMOL/L (3.5-5.1); SODIUM 141 MMOL/L (135-145); eGFR 56 ML/MIN
[2020-05-05 12:04] LABS: PHOSPHORUS 1.1 MG/DL (2.3-4.5)
[2020-05-05] MEDS: heparin 25,000 UNIT/250ml bag 250 ML IV SCH (12:52)
[2020-05-05] MEDS: gabapentin 300mg capsule PO SCH ×2 (13:04→22:22)
[2020-05-05] MEDS: sodium chloride 0.45% 1,000 ML IV SCH (13:04)
[2020-05-05] MEDS: albumin (Human) 5% 250ml 250 ML IV PRN ×3 (13:05→15:31)
[2020-05-05] MEDS: ceFAZolin 1GM/D5W- ADD-VANTAGE 50 ML IV SCH (15:35)
--- NOTE | 2020-05-05 15:41 | NUR ---
Close friend called to check on patient. She is not listed in the chart so unable to give her info, but it sounds like she is taking care of his animals. She gave me his son's number, who lives in [place]; Bj [phone]
[2020-05-05 17:45] LABS: ABG HCO3 21.7 mmol/L (22.0-26.0); ABG OXYGEN SATURATION 96.6 % (94-97); ABG PCO2 (T) 37.2 mmHg (35.0-48.0); ABG PO2 (T) 98.4 mmHg (75.0-100.0); FCOHb 0.2 % (0.0-3.9); FMetHb 0.3 % (0.0-1.5); FO2Hb 96.1 % (94-97); PEEP 5 cm H2O; TOTAL HEMOGLOBIN 9.5 G/dl (14.0-18.0)
--- NOTE | 2020-05-05 17:50 | NUR ---
patient extubated per protocol. Tolerated well. 3L NC
[2020-05-05 18:41] LABS: BASOPHILS % (AUTO) 0.2 % (0-1); EOSINOPHILS % (AUTO) 0 % (0-6); HEMATOCRIT 25.8 % (42.0-52.0); HEMOGLOBIN 8.8 g/dl (14.0-17.9); LYMPHOCYTES # (AUTO) 0.4 X10'3 (1.1-4.8); MEAN CORPUSCULAR HEMOGLOBIN 31.7 PG (27.0-31.0); MEAN CORPUSCULAR VOLUME 93.3 FL (78-98); MEAN PLATELET VOLUME 8.6 FL (7.4-10.4); MONOCYTES # (AUTO) 0.3 X10'3 (0-0.9); MONOCYTES % (AUTO) 3.1 % (2-12); NEUTROPHILS % (AUTO) 92.7 % (42-75); PLATELET COUNT 107 X10'3 (140-440); RED BLOOD COUNT 2.76 X10'6 (4.70-6.10); RED CELL DISTRIBUTION WIDTH 14.2 % (11.5-14.5); WHITE BLOOD COUNT 10.8 X10'3 (4.5-11.0)
[2020-05-05 18:56] LABS: ALANINE AMINOTRANSFERASE 40 U/L (12-78); ALBUMIN 3.5 G/DL (3.4-5.0); ALBUMIN/GLOBULIN RATIO 1.8 (1.1-1.5); ALKALINE PHOSPHATASE 32 IU/L (46-116); ANION GAP 7 (8-16); ASPARTATE AMINO TRANSFERASE 58 U/L (10-37); BILIRUBIN,TOTAL 0.6 MG/DL (0.1-1.0); BLOOD UREA NITROGEN 18 MG/DL (7-18); BUN/CREATININE RATIO 12.2 (5.4-32.0); CALCIUM 7.5 MG/DL (8.5-10.1); CHLORIDE 110 MMOL/L (99-107); CREATININE 1.47 MG/DL (0.60-1.10); GLUCOSE 170 MG/DL (70-104); MAGNESIUM 2.7 MG/DL (1.5-2.4); PHOSPHORUS 3.6 MG/DL (2.3-4.5); POTASSIUM 4.3 MMOL/L (3.5-5.1); SODIUM 142 MMOL/L (135-145); TOTAL CARBON DIOXIDE 24.6 MMOL/L (24-32); TOTAL PROTEIN 5.4 G/DL (6.4-8.2); eGFR 46 ML/MIN
--- NOTE | 2020-05-05 19:00 | NUR ---
Patient in room CICU 2010. I have received report from Ryan COLORADO and had the opportunity to ask questions and assume patient care.
--- NOTE | 2020-05-05 19:40 | NUR ---
PT had a 22 Beat run of V tach, Electrolytes within acceptable limits, underlying rhythm appears to be Atrial Fib. Dr. Tan called Thinks it could be the Pacer and the pacer was turned off. Pt now shows a Sinus Rhythm With prolonged P waves.
[2020-05-05] MEDS ORDERED: mupirocin 2% ointment 22GM NS SCH (20:00)
[2020-05-05] MEDS: vancomycin/NS 1 GM ADD-VANTAGE 250 ML IV SCH (21:33)
[2020-05-05] MEDS: NORepinephrine 8mg/ 250ml NS 250 ML IV PRN (21:48)
[2020-05-05] MEDS: morphine 2 MG/ML inj. syringe IV PRN (21:54)
[2020-05-05] MEDS: sennosides/docusate sodium tablet PO SCH (22:23)
[2020-05-06] VITALS (21 sets, daily range): BP systolic 93–158; BP diastolic 42–75
[2020-05-06] MEDS: ceFAZolin 1GM/D5W- ADD-VANTAGE 50 ML IV SCH ×3 (00:37→16:20)
[2020-05-06] MEDS: morphine 2 MG/ML inj. syringe IV PRN (01:50)
[2020-05-06 02:12] LABS: BASOPHILS % (AUTO) 0.1 % (0-1); EOSINOPHILS % (AUTO) 0 % (0-6); HEMATOCRIT 25.1 % (42.0-52.0); HEMOGLOBIN 8.5 g/dl (14.0-17.9); LYMPHOCYTES # (AUTO) 0.5 X10'3 (1.1-4.8); LYMPHOCYTES % (AUTO) 3.6 % (21-51); MEAN CORPUSCULAR HEMOGLOBIN 31.9 PG (27.0-31.0); MEAN CORPUSCULAR VOLUME 93.8 FL (78-98); MEAN PLATELET VOLUME 8.5 FL (7.4-10.4); MONOCYTES # (AUTO) 0.7 X10'3 (0-0.9); MONOCYTES % (AUTO) 5.6 % (2-12); NEUTROPHILS # (AUTO) 11.6 X10'3 (1.8-7.7); NEUTROPHILS % (AUTO) 90.7 % (42-75); PLATELET COUNT 91 X10'3 (140-440); RED BLOOD COUNT 2.68 X10'6 (4.70-6.10); RED CELL DISTRIBUTION WIDTH 14.4 % (11.5-14.5); WHITE BLOOD COUNT 12.8 X10'3 (4.5-11.0)
[2020-05-06 02:21] LABS: PARTIAL THROMBOPLASTIN TIME 29 SECONDS (22-32)
[2020-05-06 02:24] LABS: ALANINE AMINOTRANSFERASE 39 U/L (12-78); ALBUMIN 3.5 G/DL (3.4-5.0); ALBUMIN/GLOBULIN RATIO 1.7 (1.1-1.5); ALKALINE PHOSPHATASE 34 IU/L (46-116); ANION GAP 9 (8-16); ASPARTATE AMINO TRANSFERASE 61 U/L (10-37); BILIRUBIN,TOTAL 0.6 MG/DL (0.1-1.0); BLOOD UREA NITROGEN 19 MG/DL (7-18); CALCIUM 7.6 MG/DL (8.5-10.1); CHLORIDE 110 MMOL/L (99-107); CREATININE 1.27 MG/DL (0.60-1.10); GLUCOSE 150 MG/DL (70-104); MAGNESIUM 2.3 MG/DL (1.5-2.4); PHOSPHORUS 3.7 MG/DL (2.3-4.5); POTASSIUM 4.6 MMOL/L (3.5-5.1); SODIUM 143 MMOL/L (135-145); TOTAL CARBON DIOXIDE 23.7 MMOL/L (24-32); TOTAL PROTEIN 5.6 G/DL (6.4-8.2); eGFR 55 ML/MIN
[2020-05-06] MEDS: magnesium 2GM in 50ml NS 50 ML IV PRN (03:13)
[2020-05-06] MEDS: albuterol 2.5 MG/3 ML nebule NEB PRN ×3 (03:46→22:17)
--- NOTE | 2020-05-06 03:48 | NUR ---
PT having an activity intolerance During his bed bath with audible wheezes and declining O2 saturations. Pt has not been successful at his IS, only getting short breaths and 1000 volumes at most. Rt eval was initiated and an albuterol treatment was given.
[2020-05-06] MEDS: vancomycin/NS 1 GM ADD-VANTAGE 250 ML IV SCH ×2 (07:43→20:53)
[2020-05-06] MEDS: HYDROcodone/acetaminophen 10/325mg tab PO PRN ×3 (07:51→22:17)
[2020-05-06] MEDS: atorvastatin 10mg tablet PO SCH (07:51)
[2020-05-06] MEDS: sennosides/docusate sodium tablet PO SCH ×2 (07:51→21:01)
[2020-05-06] MEDS: lisinopril 20mg tablet PO SCH (07:52)
[2020-05-06] MEDS: metoprolol tartrate 12.5mg (1/2 tablet) PO SCH ×2 (07:52→21:01)
[2020-05-06] MEDS: gabapentin 300mg capsule PO SCH ×3 (07:52→21:02)
[2020-05-06] MEDS: aspirin 325mg tablet, delayed-release (Ecotrin) PO SCH (07:52)
[2020-05-06] MEDS ORDERED: metoprolol tartrate 12.5mg (1/2 tablet) PO SCH (08:00)
[2020-05-06] MEDS ORDERED: dextrose ORAL solution 15 GM/59 ML bottle PO PRN ×2 (13:35)
[2020-05-06] MEDS ORDERED: MESSAGE TO PHARMACY PO ONE (13:35)
[2020-05-06] MEDS ORDERED: dextrose 50%-water 50ml dispensing syringe IV PRN ×2 (13:35)
[2020-05-06] MEDS ORDERED: glucagon, human recombinant 1mg kit SUBCUT PRN (13:35)
[2020-05-06] MEDS ORDERED: insulin Lispro (HumaLOG) vial - multi-dose SQ SCH (13:35)
[2020-05-06] MEDS: mineral oil/petrolatum ophthal oint EACHEYE SCH ×2 (13:37→20:00)
--- NOTE | 2020-05-06 18:14 | NUR ---
Problems reprioritized. Patient report given, questions answered & plan of care reviewed with Noc RN.
--- NOTE | 2020-05-06 18:29 | NUR ---
Patient in room CICU 2010. I have received report from KAYODE COLORADO and had the opportunity to ask questions and assume patient care.
[2020-05-06] MEDS: Insulin Reg/NS 100units/100mL 100 ML IV SCH (20:15)
[2020-05-06] MEDS: insulin glargine (Lantus) pen - multi-dose SQ SCH (21:00)
--- NOTE | 2020-05-06 22:10 | NUR ---
paging RT for breathing treatment, pt sob
--- NOTE | 2020-05-06 22:58 | NUR ---
pt having a hard time keeping 02 sats up, RT put him on high flow nc at 10L. Will continue to monitor.
[2020-05-07] VITALS (24 sets, daily range): BP systolic 73–143; BP diastolic 35–77
[2020-05-07] MEDS: ceFAZolin 1GM/D5W- ADD-VANTAGE 50 ML IV SCH (00:40)
[2020-05-07] MEDS: mineral oil/petrolatum ophthal oint EACHEYE SCH ×4 (02:00→20:00)
[2020-05-07 03:07] LABS: BASOPHILS % (AUTO) 0.2 % (0-1); EOSINOPHILS % (AUTO) 0 % (0-6); HEMATOCRIT 25.4 % (42.0-52.0); HEMOGLOBIN 8.6 g/dl (14.0-17.9); LYMPHOCYTES # (AUTO) 0.4 X10'3 (1.1-4.8); LYMPHOCYTES % (AUTO) 4.6 % (21-51); MEAN CORPUSCULAR HEMOGLOBIN 31.8 PG (27.0-31.0); MEAN CORPUSCULAR HGB CONC 33.7 g/dL (33.0-36.5); MEAN CORPUSCULAR VOLUME 94.5 FL (78-98); MEAN PLATELET VOLUME 9.4 FL (7.4-10.4); MONOCYTES # (AUTO) 0.7 X10'3 (0-0.9); MONOCYTES % (AUTO) 8.4 % (2-12); NEUTROPHILS # (AUTO) 7.2 X10'3 (1.8-7.7); NEUTROPHILS % (AUTO) 86.8 % (42-75); PLATELET COUNT 116 X10'3 (140-440); RED BLOOD COUNT 2.69 X10'6 (4.70-6.10); RED CELL DISTRIBUTION WIDTH 15.1 % (11.5-14.5); WHITE BLOOD COUNT 8.3 X10'3 (4.5-11.0)
[2020-05-07 03:34] LABS: ALBUMIN 3.1 G/DL (3.4-5.0); ANION GAP 7 (8-16); BLOOD UREA NITROGEN 34 MG/DL (7-18); BUN/CREATININE RATIO 17.5 (5.4-32.0); CHLORIDE 107 MMOL/L (99-107); CREATININE 1.94 MG/DL (0.60-1.10); GLUCOSE 120 MG/DL (70-104); MAGNESIUM 2.5 MG/DL (1.5-2.4); PHOSPHORUS 4.5 MG/DL (2.3-4.5); POTASSIUM 5.1 MMOL/L (3.5-5.1); SODIUM 139 MMOL/L (135-145); TOTAL CARBON DIOXIDE 24.9 MMOL/L (24-32); eGFR 34 ML/MIN
--- NOTE | 2020-05-07 03:50 | NUR ---
PTS BP DROPPED WITH MAP UNDER 60, RECHECKED BP A FEW TIMES, CONSULTED CHARGE NURSE ABOUT IT, ABGS WERE DONE THAT SHOWED PT WAS HYPOXIC, AND CXR WAS COMPLETED WHICH SHOWED FLUID IN LUNGS. CHARGE CALLED JOHNNA AND NEW ORDERS TO PUT PT ON BIPAP, GIVE 40 OF LASIX, AND START LEVO IF BP DROPS.
[2020-05-07 04:16] LABS: ABG BASE EXCESS -2.7 mmol/L (-2.0-2.0); ABG HCO3 22.3 mmol/L (22.0-26.0); ABG OXYGEN SATURATION 86.5 % (94-97); ABG PCO2 (T) 39.7 mmHg (35.0-48.0); ABG PO2 (T) 51.1 mmHg (75.0-100.0); ALLEN'S TEST POSITIVE; FCOHb 0.1 % (0.0-3.9); FMetHb 0.3 % (0.0-1.5); FO2Hb 86.2 % (94-97); PATIENT TEMPERATURE 37.1; TOTAL HEMOGLOBIN 8.9 G/dl (14.0-18.0)
[2020-05-07] MEDS ORDERED: furosemide 40mg/4ml inj IV ONE ×2 (04:25→15:50)
[2020-05-07] MEDS ORDERED: acetaminophen 650mg rectal suppository RC PRN (04:50)
[2020-05-07] MEDS: NORepinephrine 8mg/ 250ml NS 250 ML IV PRN (05:01)
--- NOTE | 2020-05-07 06:23 | NUR ---
Problems reprioritized. Patient report given, questions answered & plan of care reviewed with KAYODE COLORADO.
[2020-05-07] MEDS: lisinopril 20mg tablet PO SCH (08:00)
[2020-05-07] MEDS ORDERED: albuterol 2.5 MG/3 ML nebule NEB SCH (08:00)
[2020-05-07] MEDS: metoprolol tartrate 12.5mg (1/2 tablet) PO SCH ×2 (08:00→20:00)
[2020-05-07] MEDS: gabapentin 300mg capsule PO SCH (08:00)
[2020-05-07] MEDS ORDERED: albuterol 2.5 MG/3 ML nebule NEB PRN (08:10)
[2020-05-07] MEDS: aspirin 325mg tablet, delayed-release (Ecotrin) PO SCH (08:54)
[2020-05-07] MEDS: atorvastatin 10mg tablet PO SCH (08:54)
[2020-05-07] MEDS: sennosides/docusate sodium tablet PO SCH ×2 (08:54→19:16)
[2020-05-07] MEDS: pantoprazole 40mg Tablet.DR PO SCH (08:55)
[2020-05-07] MEDS: sodium chloride 0.45% 1,000 ML IV SCH (10:55)
[2020-05-07] MEDS: albuterol 2.5 MG/3 ML nebule NEB SCH ×3 (15:14→23:16)
[2020-05-07 16:37] LABS: POTASSIUM 4.7 MMOL/L (3.5-5.1)
[2020-05-07 17:52] LABS: ALBUMIN 2.9 G/DL (3.4-5.0); ANION GAP 7 (8-16); BLOOD UREA NITROGEN 40 MG/DL (7-18); BUN/CREATININE RATIO 21.7 (5.4-32.0); CHLORIDE 106 MMOL/L (99-107); CREATININE 1.84 MG/DL (0.60-1.10); GLUCOSE 165 MG/DL (70-104); SODIUM 138 MMOL/L (135-145); TOTAL CARBON DIOXIDE 24.8 MMOL/L (24-32); eGFR 36 ML/MIN
--- NOTE | 2020-05-07 18:23 | NUR ---
Patient in room CICU 2010. I have received report from KAYODE COLORADO and had the opportunity to ask questions and assume patient care.
[2020-05-07] MEDS: HYDROcodone/acetaminophen 10/325mg tab PO PRN (19:36)
[2020-05-07] MEDS: insulin glargine (Lantus) pen - multi-dose SQ SCH (21:00)
[2020-05-08] VITALS (29 sets, daily range): BP systolic 104–180; BP diastolic 47–93
[2020-05-08] MEDS: mineral oil/petrolatum ophthal oint EACHEYE SCH ×4 (02:00→20:00)
[2020-05-08 02:54] LABS: BASOPHILS % (AUTO) 0.1 % (0-1); EOSINOPHILS % (AUTO) 0 % (0-6); HEMATOCRIT 22.5 % (42.0-52.0); HEMOGLOBIN 7.7 g/dl (14.0-17.9); LYMPHOCYTES # (AUTO) 0.5 X10'3 (1.1-4.8); LYMPHOCYTES % (AUTO) 7.4 % (21-51); MEAN CORPUSCULAR HEMOGLOBIN 32.4 PG (27.0-31.0); MEAN CORPUSCULAR HGB CONC 34.1 g/dL (33.0-36.5); MEAN CORPUSCULAR VOLUME 95.1 FL (78-98); MEAN PLATELET VOLUME 9.3 FL (7.4-10.4); MONOCYTES # (AUTO) 0.7 X10'3 (0-0.9); MONOCYTES % (AUTO) 11.4 % (2-12); NEUTROPHILS # (AUTO) 5.2 X10'3 (1.8-7.7); NEUTROPHILS % (AUTO) 81.1 % (42-75); PLATELET COUNT 82 X10'3 (140-440); RED BLOOD COUNT 2.37 X10'6 (4.70-6.10); RED CELL DISTRIBUTION WIDTH 15.3 % (11.5-14.5); WHITE BLOOD COUNT 6.4 X10'3 (4.5-11.0)
[2020-05-08] MEDS: albuterol 2.5 MG/3 ML nebule NEB SCH ×6 (03:04→23:13)
[2020-05-08 03:42] LABS: ALBUMIN 2.7 G/DL (3.4-5.0); ANION GAP 8 (8-16); BLOOD UREA NITROGEN 43 MG/DL (7-18); BUN/CREATININE RATIO 25.3 (5.4-32.0); CALCIUM 8.1 MG/DL (8.5-10.1); CHLORIDE 104 MMOL/L (99-107); GLUCOSE 123 MG/DL (70-104); MAGNESIUM 2.3 MG/DL (1.5-2.4); PHOSPHORUS 3.3 MG/DL (2.3-4.5); SODIUM 138 MMOL/L (135-145); TOTAL CARBON DIOXIDE 26.5 MMOL/L (24-32); eGFR 39 ML/MIN
[2020-05-08] MEDS: magnesium 2GM in 50ml NS 50 ML IV PRN (04:46)
[2020-05-08] MEDS: Insulin Reg/NS 100units/100mL 100 ML IV SCH (05:18)
--- NOTE | 2020-05-08 06:24 | NUR ---
Problems reprioritized. Patient report given, questions answered & plan of care reviewed with DAVID COLORADO.
--- NOTE | 2020-05-08 06:48 | NUR ---
Patient in room CICU 2010. I have received report from STANISLAV Jurado and had the opportunity to ask questions and assume patient care.
[2020-05-08] MEDS ORDERED: furosemide 40mg/4ml inj IV ONE (08:05)
[2020-05-08] MEDS: sennosides/docusate sodium tablet PO SCH ×2 (08:32→20:00)
[2020-05-08] MEDS: pantoprazole 40mg Tablet.DR PO SCH (08:32)
[2020-05-08] MEDS: aspirin 325mg tablet, delayed-release (Ecotrin) PO SCH (08:32)
[2020-05-08] MEDS: lisinopril 20mg tablet PO SCH (08:33)
[2020-05-08] MEDS: atorvastatin 10mg tablet PO SCH (08:34)
[2020-05-08] MEDS: metoprolol tartrate 12.5mg (1/2 tablet) PO SCH ×2 (08:34→19:22)
--- NOTE | 2020-05-08 09:00 | NUR ---
MAUREEN Berman at bedside,chest tubes dc'd,pacer wires removed,len johnson v/s closely
[2020-05-08] MEDS ORDERED: guaiFENesin ER 600mg tablet PO ONE (11:00)
--- NOTE | 2020-05-08 13:19 | NUR ---
CABG Consult: Pt s/p CABG and seen by RD for written/verbal CABG/HH diet eds w/ RD contact information provided. Pt reports lower appetite at this time though is agreeable to strawberry-banana and peach evie ivy MONAE MD notified. Addendum: 05/08/20 at [address] Amended: Links added.
--- NOTE | 2020-05-08 16:15 | NUR ---
pt turned to left side,sao2 down to 82 on 2l/n.c.placed o2 from mouth to nose with sao2 to 86, RT placed pt on bipap 09/04,30% fio2 with sao2 up to 100%,lung sounds cont with crackles at bases left greater than right.Central line dressing changed with sterile technique,as old dressing was nonadherent
--- NOTE | 2020-05-08 18:00 | NUR ---
pt up to chair on 3l/ NC, clearing secretion s with thick red/brown sputum
--- NOTE | 2020-05-08 18:24 | NUR ---
Problems reprioritized. Patient report given, questions answered & plan of care reviewed with STANISLAV Peralta.
[2020-05-08] MEDS: guaiFENesin ER 600mg tablet PO SCH (19:23)
[2020-05-08] MEDS: insulin glargine (Lantus) pen - multi-dose SQ SCH (21:00)
[2020-05-09] VITALS (24 sets, daily range): BP systolic 87–176; BP diastolic 43–94
[2020-05-09] MEDS: mineral oil/petrolatum ophthal oint EACHEYE SCH ×2 (02:00→07:51)
[2020-05-09] MEDS ORDERED: hydrALAZINE 20mg/ml inj. IV ONE (03:10)
[2020-05-09] MEDS: albuterol 2.5 MG/3 ML nebule NEB SCH ×6 (03:15→23:27)
--- NOTE | 2020-05-09 03:15 | NUR ---
Spoke with Elkin Loza, Pt's blood pressure has been in the 160's, 170's. Received order for hydralazine 10 mg IV one time.
[2020-05-09 04:10] LABS: BASOPHILS % (AUTO) 0.1 % (0-1); EOSINOPHILS % (AUTO) 0 % (0-6); HEMATOCRIT 27.6 % (42.0-52.0); HEMOGLOBIN 9.4 g/dl (14.0-17.9); LYMPHOCYTES # (AUTO) 0.5 X10'3 (1.1-4.8); LYMPHOCYTES % (AUTO) 5.4 % (21-51); MEAN CORPUSCULAR HEMOGLOBIN 31.9 PG (27.0-31.0); MEAN CORPUSCULAR HGB CONC 34.2 g/dL (33.0-36.5); MEAN CORPUSCULAR VOLUME 93.2 FL (78-98); MEAN PLATELET VOLUME 8.9 FL (7.4-10.4); MONOCYTES # (AUTO) 0.8 X10'3 (0-0.9); MONOCYTES % (AUTO) 8.1 % (2-12); NEUTROPHILS # (AUTO) 8.2 X10'3 (1.8-7.7); NEUTROPHILS % (AUTO) 86.4 % (42-75); PLATELET COUNT 119 X10'3 (140-440); RED BLOOD COUNT 2.96 X10'6 (4.70-6.10); RED CELL DISTRIBUTION WIDTH 15.2 % (11.5-14.5); WHITE BLOOD COUNT 9.5 X10'3 (4.5-11.0)
[2020-05-09 04:33] LABS: ALBUMIN 2.9 G/DL (3.4-5.0); ANION GAP 7 (8-16); BLOOD UREA NITROGEN 41 MG/DL (7-18); BUN/CREATININE RATIO 29.9 (5.4-32.0); CALCIUM 8.4 MG/DL (8.5-10.1); CHLORIDE 102 MMOL/L (99-107); CREATININE 1.37 MG/DL (0.60-1.10); GLUCOSE 141 MG/DL (70-104); MAGNESIUM 2.2 MG/DL (1.5-2.4); PHOSPHORUS 2.8 MG/DL (2.3-4.5); POTASSIUM 4.6 MMOL/L (3.5-5.1); SODIUM 136 MMOL/L (135-145); TOTAL CARBON DIOXIDE 27.4 MMOL/L (24-32); eGFR 50 ML/MIN
--- NOTE | 2020-05-09 06:00 | NUR ---
Patient in room CICU 2010. I have received report from STANISLAV Lorenzo and had the opportunity to ask questions and assume patient care.
--- NOTE | 2020-05-09 06:21 | NUR ---
Problems reprioritized. Patient report given, questions answered & plan of care reviewed with Janet COLORADO.
[2020-05-09] MEDS: pantoprazole 40mg Tablet.DR PO SCH (07:49)
[2020-05-09] MEDS: metoprolol tartrate 12.5mg (1/2 tablet) PO SCH ×2 (07:50→20:39)
[2020-05-09] MEDS: atorvastatin 10mg tablet PO SCH (07:50)
[2020-05-09] MEDS: lisinopril 20mg tablet PO SCH (07:50)
[2020-05-09] MEDS: aspirin 325mg tablet, delayed-release (Ecotrin) PO SCH (07:50)
[2020-05-09] MEDS: sennosides/docusate sodium tablet PO SCH ×2 (07:50→20:00)
[2020-05-09] MEDS: guaiFENesin ER 600mg tablet PO SCH ×2 (07:50→20:40)
[2020-05-09] MEDS: magnesium 2GM in 50ml NS 50 ML IV PRN (07:51)
[2020-05-09] MEDS ORDERED: furosemide 40mg/4ml inj IV ONE (09:10)
[2020-05-09] MEDS: sodium chloride 0.45% 1,000 ML IV SCH (11:29)
[2020-05-09] MEDS: HYDROcodone/acetaminophen 10/325mg tab PO PRN (16:58)
--- NOTE | 2020-05-09 18:00 | NUR ---
Problems reprioritized. Patient report given, questions answered & plan of care reviewed with STANISLAV Youssef.
--- NOTE | 2020-05-09 18:30 | NUR ---
Patient in room CICU 2010. I have received report from Janet COLORADO and had the opportunity to ask questions and assume patient care.
[2020-05-09] MEDS: insulin glargine (Lantus) pen - multi-dose SQ SCH (21:00)
--- NOTE | 2020-05-09 22:30 | NUR ---
Bladder scanned patient, 200mL of urine in Bladder at this time. Will continue to monitor closely.
[2020-05-10] VITALS (19 sets, daily range): BP systolic 109–149; BP diastolic 52–90
[2020-05-10] MEDS: albuterol 2.5 MG/3 ML nebule NEB SCH ×3 (02:43→10:43)
[2020-05-10 05:30] LABS: MAGNESIUM 2.2 MG/DL (1.5-2.4); PHOSPHORUS 2.9 MG/DL (2.3-4.5); POTASSIUM 3.7 MMOL/L (3.5-5.1)
--- NOTE | 2020-05-10 06:23 | NUR ---
Problems reprioritized. Patient report given, questions answered & plan of care reviewed with Katarzyna COLORADO.
--- NOTE | 2020-05-10 06:30 | NUR ---
Patient in room [facility] 2010. I have received report from Domonique COLORADO and had the opportunity to ask questions and assume patient care. Addendum: 05/10/20 at 0630 by Katarzyna Roberts RN Amended: Links added.
[2020-05-10] MEDS: magnesium 2GM in 50ml NS 50 ML IV PRN (06:47)
[2020-05-10] MEDS: atorvastatin 10mg tablet PO SCH (07:11)
[2020-05-10] MEDS: pantoprazole 40mg Tablet.DR PO SCH (07:11)
[2020-05-10] MEDS: aspirin 81mg tablet.DR PO SCH (07:11)
[2020-05-10] MEDS: guaiFENesin ER 600mg tablet PO SCH ×2 (07:11→21:12)
[2020-05-10] MEDS: metoprolol tartrate 12.5mg (1/2 tablet) PO SCH ×2 (07:12→21:15)
[2020-05-10] MEDS: potassium Cl 20 mEq SR tablet PO PRN ×3 (07:12→09:46)
[2020-05-10] MEDS: sennosides/docusate sodium tablet PO SCH ×2 (07:17→20:00)
[2020-05-10 08:40] LABS: BASOPHILS # (AUTO) 0.1 X10'3 (0-0.2); BASOPHILS % (AUTO) 0.5 % (0-1); EOSINOPHILS # (AUTO) 0.2 X10'3 (0-0.9); HEMOGLOBIN 10.8 g/dl (14.0-17.9); LYMPHOCYTES # (AUTO) 1.6 X10'3 (1.1-4.8); MEAN CORPUSCULAR HEMOGLOBIN 31.9 PG (27.0-31.0); MEAN CORPUSCULAR HGB CONC 33.7 g/dL (33.0-36.5); MEAN CORPUSCULAR VOLUME 94.9 FL (78-98); MEAN PLATELET VOLUME 9.1 FL (7.4-10.4); MONOCYTES # (AUTO) 1.8 X10'3 (0-0.9); MONOCYTES % (AUTO) 11.1 % (2-12); NEUTROPHILS # (AUTO) 12.3 X10'3 (1.8-7.7); NEUTROPHILS % (AUTO) 77.4 % (42-75); PLATELET COUNT 219 X10'3 (140-440); RED BLOOD COUNT 3.37 X10'6 (4.70-6.10); WHITE BLOOD COUNT 15.9 X10'3 (4.5-11.0)
[2020-05-10 08:49] LABS: ALBUMIN 2.9 G/DL (3.4-5.0); ANION GAP 10 (8-16); BLOOD UREA NITROGEN 45 MG/DL (7-18); BUN/CREATININE RATIO 30.2 (5.4-32.0); CALCIUM 8.3 MG/DL (8.5-10.1); CHLORIDE 102 MMOL/L (99-107); CREATININE 1.49 MG/DL (0.60-1.10); GLUCOSE 134 MG/DL (70-104); SODIUM 137 MMOL/L (135-145); TOTAL CARBON DIOXIDE 25.3 MMOL/L (24-32); eGFR 45 ML/MIN
--- NOTE | 2020-05-10 12:13 | NUR ---
Dr. Tan here. RN asked if accuchecks could be dc'd. Dr. Tan stated the ACCE unit is opening and pt. can be transferred to that floor. Dr. Tan writing orders now.
[2020-05-10] MEDS ORDERED: magnesium 2GM in 50ml NS 50 ML IV PRN (12:20)
[2020-05-10] MEDS ORDERED: potassium Cl 20mEq/100mL bag 100 ML IV PRN (12:20)
[2020-05-10] MEDS ORDERED: magnesium 4gm in 100ml NS 100 ML IV PRN (12:20)
[2020-05-10] MEDS ORDERED: potassium Cl 20 mEq SR tablet PO PRN (12:20)
--- NOTE | 2020-05-10 12:40 | NUR ---
Anatomy And Physiology Instructor here to draw another K+ since pt. has been replaced this morning.
--- NOTE | 2020-05-10 14:48 | NUR ---
Problems reprioritized. Patient report given, questions answered & plan of care reviewed with Janet Alcantara
--- NOTE | 2020-05-10 14:49 | NUR ---
Patient in room CICU 2010. I have received report from STANISLAV Colón and had the opportunity to ask questions and assume patient care.
--- NOTE | 2020-05-10 16:00 | NUR ---
Reviewed and agree with previous RN's assessment and documentation, will continue to monitor and document changes.
--- NOTE | 2020-05-10 18:00 | NUR ---
Problems reprioritized. Patient report given, questions answered & plan of care reviewed with STANISLAV Estevez.
--- NOTE | 2020-05-10 18:15 | NUR ---
Patient in room MED 307. I have received report from AUGUST COLORADO and had the opportunity to ask questions and assume patient care.
[2020-05-10] MEDS: potassium Cl 20 mEq SR tablet PO SCH (21:10)
[2020-05-10] MEDS: magnesium Cl slow-release 64mg tablet PO SCH (21:13)
[2020-05-10] MEDS: lisinopril 20mg tablet PO SCH (22:32)
[2020-05-10] MEDS: HYDROcodone/acetaminophen 10/325mg tab PO PRN (22:33)
[2020-05-11 02:00] VITALS: BP 131/76
[2020-05-11 05:43] LABS: BASOPHILS % (AUTO) 0.3 % (0-1); EOSINOPHILS # (AUTO) 0.4 X10'3 (0-0.9); EOSINOPHILS % (AUTO) 2.4 % (0-6); HEMATOCRIT 31.8 % (42.0-52.0); HEMOGLOBIN 10.9 g/dl (14.0-17.9); LYMPHOCYTES # (AUTO) 1.6 X10'3 (1.1-4.8); LYMPHOCYTES % (AUTO) 9.5 % (21-51); MEAN CORPUSCULAR HEMOGLOBIN 32.1 PG (27.0-31.0); MEAN CORPUSCULAR HGB CONC 34.2 g/dL (33.0-36.5); MEAN PLATELET VOLUME 8.1 FL (7.4-10.4); MONOCYTES % (AUTO) 12.2 % (2-12); NEUTROPHILS # (AUTO) 12.6 X10'3 (1.8-7.7); NEUTROPHILS % (AUTO) 75.6 % (42-75); PLATELET COUNT 225 X10'3 (140-440); RED BLOOD COUNT 3.38 X10'6 (4.70-6.10); WHITE BLOOD COUNT 16.7 X10'3 (4.5-11.0)
[2020-05-11 06:00] VITALS: BP 145/95
[2020-05-11 06:03] LABS: ALBUMIN 2.9 G/DL (3.4-5.0); ANION GAP 7 (8-16); BLOOD UREA NITROGEN 41 MG/DL (7-18); BUN/CREATININE RATIO 31.5 (5.4-32.0); CALCIUM 8.3 MG/DL (8.5-10.1); CHLORIDE 104 MMOL/L (99-107); GLUCOSE 119 MG/DL (70-104); MAGNESIUM 2.2 MG/DL (1.5-2.4); POTASSIUM 4.8 MMOL/L (3.5-5.1); SODIUM 135 MMOL/L (135-145); TOTAL CARBON DIOXIDE 24.2 MMOL/L (24-32); eGFR 53 ML/MIN
--- NOTE | 2020-05-11 06:10 | NUR ---
Problems reprioritized. Patient report given, questions answered & plan of care reviewed with CATRACHITA COLORADO.
--- NOTE | 2020-05-11 06:30 | NUR ---
Patient in room MED 307. I have received report from STANISLAV Estevez and had the opportunity to ask questions and assume patient care.
[2020-05-11 07:00] LABS: PLATELET ESTIMATE NORMAL; TOTAL CELLS COUNTED 100
[2020-05-11 07:01] LABS: ANISOCYTOSIS 1+; ELLIPTOCYTES FEW
[2020-05-11 07:02] LABS: POLYCHROMASIA FEW
[2020-05-11] MEDS: potassium Cl 20 mEq SR tablet PO SCH ×2 (08:00→19:43)
[2020-05-11] MEDS: magnesium Cl slow-release 64mg tablet PO SCH ×2 (08:08→19:46)
[2020-05-11] MEDS: guaiFENesin ER 600mg tablet PO SCH ×2 (08:08→19:46)
[2020-05-11] MEDS: aspirin 81mg tablet.DR PO SCH (08:08)
[2020-05-11] MEDS: sennosides/docusate sodium tablet PO SCH ×2 (08:08→19:45)
[2020-05-11] MEDS: pantoprazole 40mg Tablet.DR PO SCH (08:08)
[2020-05-11] MEDS: metoprolol tartrate 12.5mg (1/2 tablet) PO SCH ×2 (08:09→19:46)
[2020-05-11 10:00] VITALS: BP 137/78
[2020-05-11 14:00] VITALS: BP 110/64
--- NOTE | 2020-05-11 18:27 | NUR ---
Problems reprioritized. Patient report given, questions answered & plan of care reviewed with STANISLAV Au.
--- NOTE | 2020-05-11 18:30 | NUR ---
Patient in room MED 307. I have received report from Angelina, and had the opportunity to ask questions and assume patient care.
[2020-05-11 19:00] VITALS: BP 118/72
[2020-05-11] MEDS: lisinopril 20mg tablet PO SCH (19:46)
[2020-05-11 22:00] VITALS: BP 121/82
[2020-05-12 03:00] VITALS: BP 112/61
[2020-05-12 06:00] VITALS: BP 139/74
--- NOTE | 2020-05-12 06:04 | NUR ---
Problems reprioritized. Patient report given to Hermelindo, questions answered & plan of care reviewed with .
[2020-05-12 06:13] LABS: ALBUMIN 2.7 G/DL (3.4-5.0); ANION GAP 8 (8-16); BLOOD UREA NITROGEN 38 MG/DL (7-18); BUN/CREATININE RATIO 32.8 (5.4-32.0); CALCIUM 8.3 MG/DL (8.5-10.1); CHLORIDE 102 MMOL/L (99-107); CREATININE 1.16 MG/DL (0.60-1.10); GLUCOSE 104 MG/DL (70-104); POTASSIUM 4.6 MMOL/L (3.5-5.1); SODIUM 133 MMOL/L (135-145); TOTAL CARBON DIOXIDE 23.3 MMOL/L (24-32); eGFR 61 ML/MIN
[2020-05-12 06:15] LABS: BASOPHILS # (AUTO) 0.1 X10'3 (0-0.2); BASOPHILS % (AUTO) 0.3 % (0-1); EOSINOPHILS # (AUTO) 0.6 X10'3 (0-0.9); EOSINOPHILS % (AUTO) 3.8 % (0-6); HEMATOCRIT 31.5 % (42.0-52.0); HEMOGLOBIN 10.7 g/dl (14.0-17.9); LYMPHOCYTES # (AUTO) 1.4 X10'3 (1.1-4.8); LYMPHOCYTES % (AUTO) 9.6 % (21-51); MEAN CORPUSCULAR HEMOGLOBIN 31.5 PG (27.0-31.0); MEAN CORPUSCULAR HGB CONC 33.8 g/dL (33.0-36.5); MEAN CORPUSCULAR VOLUME 93.4 FL (78-98); MEAN PLATELET VOLUME 8.1 FL (7.4-10.4); MONOCYTES # (AUTO) 1.6 X10'3 (0-0.9); MONOCYTES % (AUTO) 10.5 % (2-12); NEUTROPHILS # (AUTO) 11.4 X10'3 (1.8-7.7); NEUTROPHILS % (AUTO) 75.8 % (42-75); PLATELET COUNT 238 X10'3 (140-440); RED BLOOD COUNT 3.38 X10'6 (4.70-6.10); RED CELL DISTRIBUTION WIDTH 14.9 % (11.5-14.5); WHITE BLOOD COUNT 15.1 X10'3 (4.5-11.0)
[2020-05-12 07:24] LABS: TOTAL CELLS COUNTED 100
[2020-05-12 07:26] LABS: PLATELET ESTIMATE NORMAL
[2020-05-12 07:27] LABS: POLYCHROMASIA FEW
[2020-05-12 07:28] LABS: ELLIPTOCYTES FEW; TOXIC GRANULATION 1+
--- NOTE | 2020-05-12 07:45 | NUR ---
CASE MANAGEMENT PAGED: [phone]: [facility] TRANSFER ORDERS SIGNED
[2020-05-12] MEDS: guaiFENesin ER 600mg tablet PO SCH (07:47)
[2020-05-12 07:48] VITALS: BP_SYST 141
[2020-05-12] MEDS: metoprolol tartrate 12.5mg (1/2 tablet) PO SCH (07:48)
[2020-05-12] MEDS: pantoprazole 40mg Tablet.DR PO SCH (07:49)
[2020-05-12] MEDS: aspirin 81mg tablet.DR PO SCH (07:49)
[2020-05-12] MEDS: magnesium Cl slow-release 64mg tablet PO SCH (07:49)
[2020-05-12] MEDS: sennosides/docusate sodium tablet PO SCH (07:49)
[2020-05-12] MEDS: potassium Cl 20 mEq SR tablet PO SCH (07:55)
--- NOTE | 2020-05-12 11:25 | NUR ---
Called report to STANISLAV Morrison at [facility]. all questions answered.
[2020-05-12] MEDS: HYDROcodone/acetaminophen 10/325mg tab PO PRN (11:53)
--- NOTE | 2020-05-12 12:00 | NUR ---
[facility] All known belongings taken with the patient. PIV dced, tip intact, patient tolerated well, dressing CDI. Patient home medications sent with carrier.
== END 2020-05-12 12:00 | DRG 235 ==
LOC: ER 06:24 → ED HOLD 08:18 → UNDOADMIN 08:18 → PCU 3S 13:04 → ED HOLD 13:04 → CICU 2S 05-05 08:24 → PCU 3S 05-05 08:24 → MED 3N 05-10 15:20 → CICU 2S 05-10 15:20 → PCU 3S 05-10 15:20 → UNDOADMIN 05-10 15:20 → ED HOLD 05-10 15:20 → UNDODISIN 05-12 12:00
PROVIDERS: ADMIT Family Medicine; ATTEND Thoracic Surgery (Cardiothoracic Vascular Surgery)
PROC: 02100Z9 Bypass Coronary Artery, One Artery from Left Internal Mammary, Open Approach (ICD-10-PCS; 2020-05-05)
PROC: 06BP4ZZ Excision of Right Saphenous Vein, Percutaneous Endoscopic Approach (ICD-10-PCS; 2020-05-05)
PROC: 5A1221Z Performance of Cardiac Output, Continuous (ICD-10-PCS; 2020-05-05)
PROC: 02L70CK Occlusion of Left Atrial Appendage with Extraluminal Device, Open Approach (ICD-10-PCS; 2020-05-05)
PROC: B24BZZ4 Ultrasonography of Heart with Aorta, Transesophageal (ICD-10-PCS; 2020-05-05)
PROC: 021109W Bypass Coronary Artery, Two Arteries from Aorta with Autologous Venous Tissue, Open Approach (ICD-10-PCS; principal; 2020-05-05 06:44)
DX: I25.110 Atherosclerotic heart disease of native coronary artery with unstable angina pectoris (principal); I21.4 Non-ST elevation (NSTEMI) myocardial infarction; N17.0 Acute kidney failure with tubular necrosis; I48.92 Unspecified atrial flutter; N17.9 Acute kidney failure, unspecified; D62 Acute posthemorrhagic anemia; I10 Essential (primary) hypertension; I48.91 Unspecified atrial fibrillation; D64.9 Anemia, unspecified; E78.00 Pure hypercholesterolemia, unspecified; I12.9 Hypertensive chronic kidney disease with stage 1 through stage 4 chronic kidney disease, or unspecified chronic kidney disease; I25.2 Old myocardial infarction; N18.9 Chronic kidney disease, unspecified; Z60.2 Problems related to living alone
CPT/HCPCS: 0232T; 93312; 93325; 99285; 36415; 36430; 36600; 71045; 71046; 76937; 80048; 80053; 82330; 82435; 82803; 82947; 82948; 83735; 83880; 84100; 84132; 84295; 84484; 85007; 85018; 85025; 85347; 85384; 85610; 85730; 86885; 86900; 86901; 86920; 87081; 93005; 94002; 94640; 94660; 94760; 97110; 97116; 97161; 97530; A4618; A6258; A6402; A6449; A7000; A7048; C1713; C1751; C9113; G0378; J0360; J0690; J1100; J1265; J1644; J1815; J1940; J2001; J2060; J2250; J2270; J2370; J2405; J2440; J2704; J2720; J2930; J3370; J3475; J3480; J3490; J7030; J7040; J7050; J7120; P9016; P9047

== ENCOUNTER 2021-08-16 07:40 | Day surgery (SDC) | payer BC, MEDICARE ==
[2021-08-15 10:33] LABS: BASOPHILS # (AUTO) 0.1 X10'3 (0-0.2); EOSINOPHILS # (AUTO) 0.2 X10'3 (0-0.9); EOSINOPHILS % (AUTO) 2.8 % (0-6); HEMATOCRIT 41.5 % (42.0-52.0); HEMOGLOBIN 14.2 g/dl (14.0-17.9); LYMPHOCYTES # (AUTO) 1.4 X10'3 (1.1-4.8); LYMPHOCYTES % (AUTO) 19.4 % (21-51); MEAN CORPUSCULAR HEMOGLOBIN 32.2 PG (27.0-31.0); MEAN CORPUSCULAR HGB CONC 34.2 g/dL (33.0-36.5); MEAN CORPUSCULAR VOLUME 94.1 FL (78-98); MONOCYTES # (AUTO) 0.8 X10'3 (0-0.9); MONOCYTES % (AUTO) 11.8 % (2-12); NEUTROPHILS # (AUTO) 4.6 X10'3 (1.8-7.7); PLATELET COUNT 192 X10'3 (140-440); RED BLOOD COUNT 4.41 X10'6 (4.70-6.10); RED CELL DISTRIBUTION WIDTH 14.8 % (11.5-14.5); WHITE BLOOD COUNT 7.1 X10'3 (4.5-11.0)
[2021-08-15 10:44] LABS: ALBUMIN 3.8 G/DL (3.4-5.0); ANION GAP 11 (8-16); BLOOD UREA NITROGEN 20 MG/DL (7-18); BUN/CREATININE RATIO 11.6 (5.4-32.0); CALCIUM 8.3 MG/DL (8.5-10.1); CHLORIDE 104 MMOL/L (99-107); CREATININE 1.72 MG/DL (0.60-1.10); GLUCOSE 107 MG/DL (70-104); POTASSIUM 4.7 MMOL/L (3.5-5.1); SODIUM 139 MMOL/L (135-145); TOTAL CARBON DIOXIDE 23.7 MMOL/L (24-32); eGFR 38 ML/MIN
[2021-08-16] VITALS (8 sets, daily range): BP systolic 124–169; BP diastolic 76–104
[~2021-08-16] VITALS: Ht 175.3 cm; Wt 89.3 kg
[~2021-08-16 07:40] MED LIST changes: +AMIO200T61 PO; +APIX5TAB3 PO; +ASPI-1053 PO; -ATOR20TA66 PO; +ATOR40TA71 PO; -LISI-600 PO; +LISI20TA28 PO; +LOP25T PO; -METO25TA6 PO; +OMEG-79 PO
[2021-08-16] MEDS ORDERED: amiodarone 150mg/dext, iso-os 100 ML IV ONE (08:05)
[2021-08-16] MEDS ORDERED: MIDAZolam 1mg/ml 10ml vial IV ONE (08:05)
[2021-08-16] MEDS ORDERED: diphenhydrAMINE 25mg capsule PO ONE (08:05)
[2021-08-16] MEDS ORDERED: LORazepam 0.5 MG tablet PO ONE (08:05)
[2021-08-16] MEDS ORDERED: atropine 0.1mg/ml 10ml syringe IV ONE (08:05)
[2021-08-16] MEDS ORDERED: morphine 10mg/ml inj. IV ONE (08:05)
[2021-08-16] MEDS ORDERED: APIX5TAB5 PO (08:15)
[2021-08-16] MEDS ORDERED: FLU VACC QS2021-22(6MOS UP)/PF 60 MCG/0.5 ML SYRINGE IM ONE (11:40)
[2021-08-16] MEDS ORDERED: pneumococcal 23-VAL P-sac vacc 25 mcg/0.5ml vial IMVAC ONE (11:40)
== END 2021-08-16 12:25 | disposition home or self-care (01) ==
LOC: SSTAY O 07:40
PROVIDERS: ATTEND Internal Medicine Cardiovascular Disease
DX: I48.19 Other persistent atrial fibrillation (principal); I48.92 Unspecified atrial flutter; I10 Essential (primary) hypertension; E78.5 Hyperlipidemia, unspecified; Z95.0 Presence of cardiac pacemaker; Z95.1 Presence of aortocoronary bypass graft; Z79.899 Other long term (current) drug therapy; Z79.01 Long term (current) use of anticoagulants
CPT/HCPCS: 36415; 80048; 85025; 92960; 93005; 94760; 94799; J2250; J2270

== ENCOUNTER → 2023-11-22 | Outpatient (CLI) | payer BC, MEDICARE ==
[~2023-11-22] MED LIST changes: +AMI200T PO; -AMIO200T61 PO; -APIX5TAB3 PO; +APIX5TAB5 PO
[2023-11-22 09:02] LABS: TOTAL HEMOGLOBIN 15.1 G/dl (14.0-17.9)
== END | disposition home or self-care (01) ==
LOC: RT 08:32
PROVIDERS: ATTEND Internal Medicine Cardiovascular Disease
DX: R06.02 Shortness of breath (principal); Z79.899 Other long term (current) drug therapy
CPT/HCPCS: 85018; 94010; 94727; 94729